=== PATIENT | male | born 1985 | race Caucasian/White ===

== ENCOUNTER 2016-07-10 03:02 | Inpatient (IN) ==
[2016-07-10 03:29] LABS: Basophils % 0.3 %; Eosinophils # 0.1 K/mcL (0.0-0.6); Eosinophils % 1.3 %; Hematocrit 54.5 % (37.5-50.1); Hemoglobin 19.2 g/dL (12.9-16.9); Immature Granulocytes % 0.4 % (0-4); Lymphocytes # 2.8 K/mcL (0.6-4.6); Lymphocytes % 27.3 %; Mean Corpuscular HGB Conc 35.2 g/dL (31.6-35.5); Mean Corpuscular Volume 82.5 fL (83.0-100.0); Mean Platelet Volume 10.2 fL (9.4-12.4); Monocytes # 1.1 K/mcL (0.0-1.3); Monocytes % 10.4 %; Neutrophils # 6.2 K/mcL (1.6-8.9); Platelet Count 235 K/mcL (140-400); Red Blood Count 6.61 M/mcL (4.19-5.50); Red Cell Distribution Width 12.8 % (11.5-14.5); Segmented Neutrophils % 60.3 %
[2016-07-10 03:40] LABS: BUN/Creatinine Ratio 9 (6-26); Blood Urea Nitrogen 11 mg/dL (8-26); Calcium 9.7 mg/dL (8.6-10.8); Carbon Dioxide 21 mEq/L (19-29); Chloride 104 mEq/L (98-109); Glucose 114 mg/dL (70-99); Osmolality,Calculated 286 (280-300); Potassium 3.7 mEq/L (3.5-4.5); Sodium 138 mEq/L (136-145); eGFR For African Americans > 60 (> 60); eGFR For Non-African Americans > 60 (> 60)
[2016-07-10 03:41] LABS: Acetaminophen < 1.0 mcg/mL (10-30); Ethanol < 10 mg/dL (0-10); Salicylate < 5.0 mg/dL (15-30)
--- NOTE | 2016-07-10 03:43 | Emergency Department Note ---
Disposition Clinical Impression: Suicidal ideation Depression Qualifiers: Depression Type: unspecified Qualified Code(s): F32.9 - Major depressive disorder, single episode, unspecified Disposition: Admitted As Inpatient Time of Disposition: 05:51 Psych HPI - General Chief Complaint: ED Psychiatric Symptoms Stated Complaint: PSYCH Time Seen by Provider: 07/10/16 03:23 Source: patient Nursing Notes Reviewed: Yes Vital Signs Reviewed: Yes - History of Present Illness Pt complaint: suicidal ideation, feels depressed If medical clearance, reason: psychiatric condition Onset (ago): day(s) Duration: getting worse History of similar episodes: Yes Improves with: none Worsens with: none Context: significant life stressor Alleged intoxication: No Associated symptoms: Denies: confusion, headache Traumatic symptoms: denies traumatic injury Self harm or harm to others: admits thoughts of self harm - Related Data Previous Rx's Medication Instructions Recorded Cefdinir [Omnicef] 300 mg PO BID #20 capsule 10/05/15 DiphenhydraMINE [Benadryl] 25 mg PO Q6HR PRN #40 capsule 12/10/15 Doxycycline 100 mg PO BID 10 Days 12/10/15 PredniSONE 40 mg PO DAILY 5 Days 12/10/15 Triamcinolone Acet 0.1% CRM 453.6 gm TP 1-2XD PRN #1 cream..g. 12/10/15 [Kenalog] Allergies Allergy/AdvReac Type Severity Reaction Status Date / Time No Known Allergies Allergy Verified 09/17/15 15:53 All systems ED: reviewed and negative except as stated. Constitutional: Denies: fever, chills Eyes: Denies: eye pain ENT ED: Denies: ear pain Cardiovascular: Denies: chest pain Respiratory: Denies: cough, dyspnea, wheezes Gastrointestinal: Denies: abdominal pain, nausea, vomiting Genitourinary: Denies: dysuria Musculoskeletal: Denies: back pain Neurological: Denies: headache Psychiatric: Denies: anxiety Endocrine: Denies: fatigue Hematological/Lymphatic: Denies: easy bleeding Allergic/Immunologic: Denies: facial swelling Past Medical History - Past Medical History Medical history: Reports: no medical history Psychiatric history: Reports: no psych history - Social History Smoking Status: Current every day smoker Smokeless Tobacco Status: No Alcohol use: Reports: none Drug use: Reports: none Physical Exam - General Limitations: no limitations General appearance: alert, in no apparent distress - Head Head exam: atraumatic, normocephalic - Eye Eye exam: Present: EOMI - ENT ENT exam: normal exam - Neck Neck exam: Present: normal inspection - Chest Chest inspection: Present: normal inspection, symmetric chest wall rise - Respiratory Respiratory exam: Present: wheezes. Absent: respiratory distress - Cardiovascular Cardiovascular exam: Present: regular rate, normal rhythm - Abdominal Exam Abdominal exam: Present: soft, Non-Tender - Extremities Exam Extremities exam: Present: full ROM. Absent: tenderness - Back Exam Back exam: Present: normal inspection, full ROM - Neurological Exam Neurological exam: Present: alert, oriented X3 - Psychiatric Psychiatric exam: Present: normal affect, normal mood, suicidal ideation. Absent: homicidal ideation - Skin Skin exam: Present: warm, dry, intact, normal color. Absent: rash, cyanosis, diaphoresis Course Course Narrative: 31-year-old male relates to exam room with complaints of suicidal ideation a few days. He mentions that he has been hospitalized for this in the past at [facility] but that was years ago. He mentions he had called the crisis line earlier today by then to come to the emergency department. Patient seen and examined. He appears anxious but in no acute distress. Workup initiated for medical clearance for psychiatric evaluation. - Reevaluation(s) Reevaluation #1: History this time his lab work is back appears unremarkable. However patient has not been able to urinate since he arrived. He states he cannot remember the last time he urinated. Denies any history of prostate issues, urinary retention, or any other urinary symptoms. Will order bladder/scan straight cath. Time: 04:27 Vital Signs Temperature 98.1 F 07/10/16 03:03 Pulse Rate 87 07/10/16 03:03 Respiratory Rate 18 07/10/16 03:03 Blood Pressure 183/100 07/10/16 03:03 O2 Sat by Pulse Oximetry 95 07/10/16 03:03 Temperature 98.1 F 07/10/16 03:03 Pulse Rate 87 07/10/16 03:03 Respiratory Rate 18 07/10/16 03:03 Blood Pressure 183/100 07/10/16 03:03 O2 Sat by Pulse Oximetry 95 07/10/16 03:03 Oxygen Delivery Oxygen Delivery Room Air Psych - MDM Narrative Medical decision making narrative: Patient was medically cleared for and evaluated by behavioral health staff, and was accepted for inpatient treatment. - Lab Data Result diagrams: 07/10/16 03:14 07/10/16 03:14 Lab Results 07/10/16 07/10/16 07/10/16 Range/Units 03:14 03:14 04:56 WBC 10.2 (4.3-11.1) K/mcL RBC 6.61 H (4.19-5.50) M/mcL Hgb 19.2 H (12.9-16.9) g/dL Hct 54.5 H (37.5-50.1) % MCV 82.5 L (83.0-100.0) fL MCH 29.0 (28.0-33.3) pg MCHC 35.2 (31.6-35.5) g/dL RDW 12.8 (11.5-14.5) % Plt Count 235 (140-400) K/mcL MPV 10.2 (9.4-12.4) fL Immature Gran % 0.4 (0-4) % Seg Neutrophils % 60.3 % Lymphocytes % 27.3 % Monocytes % 10.4 % Eosinophils % 1.3 % Basophils % 0.3 % Neutrophils # 6.2 (1.6-8.9) K/mcL Lymphocytes # 2.8 (0.6-4.6) K/mcL Monocytes # 1.1 (0.0-1.3) K/mcL Eosinophils # 0.1 (0.0-0.6) K/mcL Basophils # 0.0 (0.0-0.2) K/mcL Sodium 138 (136-145) mEq/L Potassium 3.7 (3.5-4.5) mEq/L Chloride 104 (98-109) mEq/L Carbon Dioxide 21 (19-29) mEq/L BUN 11 (8-26) mg/dL Creatinine 1.26 H (0.72-1.25) mg/dL Est GFR ( Amer) > 60 (> 60) Est GFR (Non-Af Amer) > 60 (> 60) BUN/Creatinine Ratio 9 (6-26) Glucose 114 H (70-99) mg/dL Calculated Osmolality 286 (280-300) Calcium 9.7 (8.6-10.8) mg/dL Urine Color Yellow (Yellow) Urine Clarity Clear (Clear) Urine pH 6.0 (5.0-8.0) pH Units Ur Specific [place] 1.015 (1.010-1.025) Urine Protein Negative (Neg-Trace) mg/dL Urine Glucose (UA) Normal (Normal) mg/dL Urine Ketones Trace H (Negative) mg/dL Urine Blood Negative (Negative) Urine Nitrite Negative (Negative) Urine Bilirubin Negative (Negative) Urine Urobilinogen Normal (Normal) mg/dL Ur Leukocyte Esterase Negative (Negative) Salicylates < 5.0 L (15-30) mg/dL Urine Opiates Screen (Pcvmjs=130) ng/mL Acetaminophen < 1.0 L (10-30) mcg/mL Ur Barbiturates Screen (Tbstph=522) ng/mL Ur Phencyclidine Scrn (Cutoff=25) ng/mL Ur Amphetamines Screen (Uhltwx=9990) ng/mL U Benzodiazepines Scrn (Wyynsg=334) ng/mL Urine Cocaine Screen (Cutoff= 300) ng/mL U Marijuana (THC) Screen (Cutoff = 50) ng/mL Ethyl Alcohol < 10 (0-10) mg/dL 07/10/16 Range/Units 04:56 WBC (4.3-11.1) K/mcL RBC (4.19-5.50) M/mcL Hgb (12.9-16.9) g/dL Hct (37.5-50.1) % MCV (83.0-100.0) fL MCH (28.0-33.3) pg MCHC (31.6-35.5) g/dL RDW (11.5-14.5) % Plt Count (140-400) K/mcL MPV (9.4-12.4) fL Immature Gran % (0-4) % Seg Neutrophils % % Lymphocytes % % Monocytes % % Eosinophils % % Basophils % % Neutrophils # (1.6-8.9) K/mcL Lymphocytes # (0.6-4.6) K/mcL Monocytes # (0.0-1.3) K/mcL Eosinophils # (0.0-0.6) K/mcL Basophils # (0.0-0.2) K/mcL Sodium (136-145) mEq/L Potassium (3.5-4.5) mEq/L Chloride (98-109) mEq/L Carbon Dioxide (19-29) mEq/L BUN (8-26) mg/dL Creatinine (0.72-1.25) mg/dL Est GFR ( Amer) (> 60) Est GFR (Non-Af Amer) (> 60) BUN/Creatinine Ratio (6-26) Glucose (70-99) mg/dL Calculated Osmolality (280-300) Calcium (8.6-10.8) mg/dL Urine Color (Yellow) Urine Clarity (Clear) Urine pH (5.0-8.0) pH Units Ur Specific [place] (1.010-1.025) Urine Protein (Neg-Trace) mg/dL Urine Glucose (UA) (Normal) mg/dL Urine Ketones (Negative) mg/dL Urine Blood (Negative) Urine Nitrite (Negative) Urine Bilirubin (Negative) Urine Urobilinogen (Normal) mg/dL Ur Leukocyte Esterase (Negative) Salicylates (15-30) mg/dL Urine Opiates Screen Negative (Rjvxhu=364) ng/mL Acetaminophen (10-30) mcg/mL Ur Barbiturates Screen Negative (Ugpdzd=087) ng/mL Ur Phencyclidine Scrn Negative (Cutoff=25) ng/mL Ur Amphetamines Screen Negative (Pbyqxe=2481) ng/mL U Benzodiazepines Scrn Negative (Nhppso=718) ng/mL Urine Cocaine Screen Positive H (Cutoff= 300) ng/mL U Marijuana (THC) Screen Positive H (Cutoff = 50) ng/mL Ethyl Alcohol (0-10) mg/dL Psychiatric Medical Clearance - Medical Clearance Checklist Medical History: No Social History Section defined Current Vitals: Last Vital Signs Temp 98.1 F 07/10/16 03:03 Pulse 87 07/10/16 03:03 Resp 18 07/10/16 03:03 BP 183/100 07/10/16 03:03 Pulse Ox 95 07/10/16 03:03 Psychiatric Lab Panel: Drug Levels and Toxicity 07/10/16 07/10/16 03:14 04:56 Urine Opiates Screen Negative Acetaminophen < 1.0 L Ur Barbiturates Screen Negative Ur Phencyclidine Scrn Negative Ur Amphetamines Screen Negative U Benzodiazepines Scrn Negative Urine Cocaine Screen Positive H U Marijuana (THC) Screen Positive H Ethyl Alcohol < 10 Abnormal Labs: Abnormal lab results RBC 6.61 M/mcL (4.19-5.50) H 07/10/16 03:14 Hgb 19.2 g/dL (12.9-16.9) H 07/10/16 03:14 Hct 54.5 % (37.5-50.1) H 07/10/16 03:14 MCV 82.5 fL (83.0-100.0) L 07/10/16 03:14 Creatinine 1.26 mg/dL (0.72-1.25) H 07/10/16 03:14 Glucose 114 mg/dL (70-99) H 07/10/16 03:14 Urine Ketones Trace mg/dL (Negative) H 07/10/16 04:56 Salicylates < 5.0 mg/dL (15-30) L 07/10/16 03:14 Acetaminophen < 1.0 mcg/mL (10-30) L 07/10/16 03:14 Urine Cocaine Screen Positive ng/mL (Cutoff= 300) H 07/10/16 04:56 U Marijuana (THC) Screen Positive ng/mL (Cutoff = 50) H 07/10/16 04:56 Statement of Medical Clearance: I have evaluated the patient, reviewed diagnostic information, and certify that the patient's medical condition is sufficiently stable that transfer to the psychiatric unit does not pose a significant risk of deterioration.
--- NOTE | 2016-07-10 04:54 | Emergency Department Note ---
START Narrative - START START: I examined this patient and my medical decision-making was reviewed with the MOTHER SUPERIOR/PA/Advanced Practice Nurse/Resident Physician. I agree with the documented findings, disposition and treatment plan as described except to the extent set forth below. ED attending note: Patient seen with physician timber management assistant Mikhail Waldrop Please see a copy of his note for details of the H&P, evaluation, management and disposition of this patient. We independently had [id number] contact with the patient Briefly: A 31-year-old male by EMS suicidal ideation With Discrete Plan. Patient Is Awake Alert and Appropriate Cooperative. Just Waiting Urinalysis. Otherwise Patient Is Medically Clear. Awaiting Mental Health Consultation. Disposition Pending.
[2016-07-10 05:02] LABS: Bilirubin,Urine Negative (Negative); Blood,Urine Negative (Negative); Clarity,Urine Clear (Clear); Color,Urine Yellow (Yellow); Glucose,Urine (UA) Normal (Normal); Ketones,Urine Trace mg/dL (Negative); Leukocyte Esterase,Urine Negative (Negative); Nitrite,Urine Negative (Negative); Protein,Urine Negative (Neg-Trace); Specific Gravity,Urine 1.015 (1.010-1.025); Urobilinogen,Urine Normal (Normal)
[2016-07-10 05:08] LABS: Amphetamine Screen,Urine Negative ng/mL (Cutoff=1000); Barbiturate Screen,Urine Negative ng/mL (Cutoff=200); Benzodiazepines Screen,Urine Negative ng/mL (Cutoff=200); Cannabinoid Screen,Urine Positive ng/mL (Cutoff = 50); Cocaine Screen,Urine Positive ng/mL (Cutoff= 300); Opiate Screen,Urine Negative ng/mL (Cutoff=300); Phencyclidine Screen,Urine Negative ng/mL (Cutoff=25)
[2016-07-10] MEDS ORDERED: MOM Conc 10 ML UD.LIQ PO PRN (06:01)
[2016-07-10] MEDS ORDERED: Acetaminophen 325 MG TABLET PO PRN (06:01)
[2016-07-10] MEDS ORDERED: *HR* LORazepam 1 MG TABLET PO PRN (06:01)
[2016-07-10] MEDS ORDERED: Mag Hydrox/Al Hydrox/Simeth 30 ML UDC PO PRN (06:01)
[2016-07-10] MEDS ORDERED: *HR* LORazepam 2 MG/ML VIAL IM PRN (06:01)
[2016-07-10] MEDS ORDERED: Haloperidol Lactate 5 MG/ML VIAL IM PRN (06:01)
[2016-07-10] MEDS ORDERED: traZODone 50 MG TABLET PO PRN (06:01)
[2016-07-10] MEDS: Nicotine 2 MG GUM BC PRN ×3 (09:56→21:19)
--- NOTE | 2016-07-10 10:08 | Psychiatry History & Physical ---
Date of Encounter: 07/10/16 Time of Encounter: 10:01 History of Present Illness Patient Stated Chief Complaint: suicidal Medicare Admission Attestation: For traditional Medicare patients the provided hospital inpatient services are reasonable and necessary and in the case of services not specified as inpatient -only under 42 CFR 419.22 (n), that they are appropriately provided as inpatient services in accordance 42 CFR 412.3. For Critical Access Hospital the patient may reasonably be expected to be discharged or transferred to a hospital within 96 hours after admission to the Critical Access Hospital. Admitted From: Emergency Dept History of Present Illness: Mr. Mo is a 31 year old male admitted from the emergency room for suicidal ideation and intoxication with cocaine and THC. Patient reports he had a suicide attempt when he was 20 years old by overdosing on blood pressure medication his father and he was hospitalized at that time. Did not have any outpatient follow-up after. He does admit to using cocaine and marijuana regularly never had any treatments or rehabilitation. He stressed out by unemployment and financial issues and family issues and substance abuse. Patient was vague and evasive answering questions regarding his suicidal ideation. Past Med Surg Social Fam HX - Past Medical History Medical history: no medical history - Past Psychiatric History Psychiatric history: Reports: no psych history - Social History Smoking Status: Current every day smoker Smokeless Tobacco Status: No Alcohol use: none Drug use: none Medications & Allergies Cefdinir [Omnicef] 300 mg PO BID #20 capsule 10/05/15 [Rx] DiphenhydraMINE [Benadryl] 25 mg PO Q6HR PRN #40 capsule 12/10/15 [Rx] Doxycycline 100 mg PO BID 10 Days 12/10/15 [Rx] PredniSONE 40 mg PO DAILY 5 Days 12/10/15 [Rx] Triamcinolone Acet 0.1% CRM [Kenalog] 453.6 gm TP 1-2XD PRN #1 cream..g. [Rx] Allergies No Known Allergies Allergy (Verified 09/17/15 15:53) Review of Systems Psychiatric: Reports: suicidal ideation Mental Status Exam Patient orientation: Yes Person, Yes Time, Yes Place Level of alertness: Alert Patient appearance: Appropriate, Well Groomed, Obese Behavior: calm, cooperative, guarded, other (chewing gum, superficial) Psychomotor activity: Normal Eye contact: Maintains Eye Contact Mood description: Anxious, Irritable Affect description: constricted, dysphoric Speech pattern: Normal rate, Normal rhythm, Normal tone Speech volume: Normal Thought process: Linear, Goal Oriented Thought content: Yes Suicidal ideation, No Overt delusions Perceptual disturbances: No Auditory hallucinations, No Visual hallucinations Attention span: Capable of Focused Attention Memory description: Grossly Intact Patient reliability: Questionable Historian Intelligence estimate: Average Judgment: Limited Insight: Partial Results - Vital Signs Vital signs: Temp Pulse Resp BP Pulse Ox 97 F L 75 16 154/91 95 07/10/16 08:53 07/10/16 08:53 07/10/16 08:53 07/10/16 08:53 07/10/16 03:03 - Labs Labs: Laboratory Last Values WBC 10.2 K/mcL (4.3-11.1) 07/10/16 03:14 RBC 6.61 M/mcL (4.19-5.50) H 07/10/16 03:14 Hgb 19.2 g/dL (12.9-16.9) H 07/10/16 03:14 Hct 54.5 % (37.5-50.1) H 07/10/16 03:14 MCV 82.5 fL (83.0-100.0) L 07/10/16 03:14 MCH 29.0 pg (28.0-33.3) 07/10/16 03:14 MCHC 35.2 g/dL (31.6-35.5) 07/10/16 03:14 RDW 12.8 % (11.5-14.5) 07/10/16 03:14 Plt Count 235 K/mcL (140-400) 07/10/16 03:14 MPV 10.2 fL (9.4-12.4) 07/10/16 03:14 Immature Gran % 0.4 % (0-4) 07/10/16 03:14 Seg Neutrophils % 60.3 % 07/10/16 03:14 Lymphocytes % 27.3 % 07/10/16 03:14 Monocytes % 10.4 % 07/10/16 03:14 Eosinophils % 1.3 % 07/10/16 03:14 Basophils % 0.3 % 07/10/16 03:14 Neutrophils # 6.2 K/mcL (1.6-8.9) 07/10/16 03:14 Lymphocytes # 2.8 K/mcL (0.6-4.6) 07/10/16 03:14 Monocytes # 1.1 K/mcL (0.0-1.3) 07/10/16 03:14 Eosinophils # 0.1 K/mcL (0.0-0.6) 07/10/16 03:14 Basophils # 0.0 K/mcL (0.0-0.2) 07/10/16 03:14 Sodium 138 mEq/L (136-145) 07/10/16 03:14 Potassium 3.7 mEq/L (3.5-4.5) 07/10/16 03:14 Chloride 104 mEq/L (98-109) 07/10/16 03:14 Carbon Dioxide 21 mEq/L (19-29) 07/10/16 03:14 BUN 11 mg/dL (8-26) 07/10/16 03:14 Creatinine 1.26 mg/dL (0.72-1.25) H 07/10/16 03:14 Est GFR ( Amer) > 60 (> 60) 07/10/16 03:14 Est GFR (Non-Af Amer) > 60 (> 60) 07/10/16 03:14 BUN/Creatinine Ratio 9 (6-26) 07/10/16 03:14 Glucose 114 mg/dL (70-99) H 07/10/16 03:14 Calculated Osmolality 286 (280-300) 07/10/16 03:14 Calcium 9.7 mg/dL (8.6-10.8) 07/10/16 03:14 Urine Color Yellow (Yellow) 07/10/16 04:56 Urine Clarity Clear (Clear) 07/10/16 04:56 Urine pH 6.0 pH Units (5.0-8.0) 07/10/16 04:56 Ur Specific [place] 1.015 (1.010-1.025) 07/10/16 04:56 Urine Protein Negative mg/dL (Neg-Trace) 07/10/16 04:56 Urine Glucose (UA) Normal mg/dL (Normal) 07/10/16 04:56 Urine Ketones Trace mg/dL (Negative) H 07/10/16 04:56 Urine Blood Negative (Negative) 07/10/16 04:56 Urine Nitrite Negative (Negative) 07/10/16 04:56 Urine Bilirubin Negative (Negative) 07/10/16 04:56 Urine Urobilinogen Normal mg/dL (Normal) 07/10/16 04:56 Ur Leukocyte Esterase Negative (Negative) 07/10/16 04:56 Salicylates < 5.0 mg/dL (15-30) L 07/10/16 03:14 Urine Opiates Screen Negative ng/mL (Qkmsow=500) 07/10/16 04:56 Acetaminophen < 1.0 mcg/mL (10-30) L 07/10/16 03:14 Ur Barbiturates Screen Negative ng/mL (Xuudmv=021) 07/10/16 04:56 Ur Phencyclidine Scrn Negative ng/mL (Cutoff=25) 07/10/16 04:56 Ur Amphetamines Screen Negative ng/mL ([place]=4650) 07/10/16 04:56 U Benzodiazepines Scrn Negative ng/mL (Xznamv=375) 07/10/16 04:56 Urine Cocaine Screen Positive ng/mL (Cutoff= 300) H 07/10/16 04:56 U Marijuana (THC) Screen Positive ng/mL (Cutoff = 50) H 07/10/16 04:56 Ethyl Alcohol < 10 mg/dL (0-10) 07/10/16 03:14 Assessment and Plan (1) Suicidal ideation Current visit: Yes Status: Acute Plan: Admit inpatient for safety and stabilization, Close observation, Suicide Precautions per unit protocol, Encourage participation in unit milieu, Group Therapy, Monitor sleep, Monitor appetite Additional Plan: We will start patient on fluoxetine 20 mg daily. Benefits and side effects were discussed patient is agreeable to start. Risks, benefits, side effects, alternatives discussed w/pt: Yes Patient agreeable to treatment: Yes Estimated Length of Stay (Days): 5 (2) Cocaine abuse Current visit: Yes Status: Acute Plan: Admit inpatient for safety and stabilization, Close observation, Suicide Precautions per unit protocol, Encourage participation in unit milieu, Group Therapy, Monitor sleep, Monitor appetite Risks, benefits, side effects, alternatives discussed w/pt: Yes Patient agreeable to treatment: Yes (3) Moderate tetrahydrocannabinol (THC) dependence Current visit: Yes Status: Acute Plan: Admit inpatient for safety and stabilization, Close observation, Suicide Precautions per unit protocol, Encourage participation in unit milieu, Group Therapy, Monitor sleep, Monitor appetite
[2016-07-11 08:52] VITALS: BP 143/87
[2016-07-11] MEDS: Nicotine 2 MG GUM BC PRN (12:24)
[2016-07-11] MEDS ORDERED: FLUoxetine 20 MG CAPSULE PO SCH (13:30)
--- NOTE | 2016-07-11 14:10 | Discharge Summary ---
Date of Encounter: 07/11/16 Time of Encounter: 14:08 Diagnosis - Discharge Diagnosis (1) Suicidal ideation Status: Acute (2) Cocaine abuse Status: Acute (3) Moderate tetrahydrocannabinol (THC) dependence Status: Acute Medications - Discharge Medications No Known Home Drugs 07/10/16 [History] Allergies No Known Allergies Allergy (Verified 09/17/15 15:53) Provider Date of admission: 07/10/16 05:49 Primary care physician: PCP NO Discharging clinician: Zack Addison Assessment and Plan - Patient/Caregiver Discharge Instructions Activity: resume usual activities as tolerated Diet: regular diet - Follow up Plan Follow up with: NO,PCP [Primary Care Provider] - Functional capacity at discharge: independent ambulation Overall status at discharge: Stable Disposition: Home, Self-Care Hospital Course Hospital course: Mr. Mo is a 31 year old male admitted for suicidal ideation and intoxication was cocaine and marijuana. Patient has been using drugs for several years and unemployed unable to support his family and kicked him out of the house. Patient has a history of past TREATMENTS in the hospital but no follow-up and has been using drugs since age 15. Her 4 details of admission please see H&P On the unit the patient was anxious and irritable and demanding discharge refused to take medication but was interested in getting into drug rehabilitation program. Prior to discharge he was medically stable on no medication and denies any suicidal ideation and discussed his discharge plans with social worker palliative care. - Time Spent with Patient Total time spent providing and/or coordinating discharge services: Less than 30 minutes Quality - Multiple Antipsychotics Patient discharged on 2 or more antipsychotic medications: No Procedures - Procedures Procedures: Medication Management, Crisis Stabilization, Supportive Therapy, Group Therapy, Psychoeducational Therapy Mental Status Exam - Mental Status Exam Patient orientation: Yes Person, Yes Time, Yes Place Level of alertness: Alert Patient appearance: Appropriate, Well Groomed, Obese Behavior: calm, cooperative, guarded Psychomotor activity: Normal Eye contact: Maintains Eye Contact Mood description: Anxious Affect description: constricted Speech pattern: Normal rate, Normal rhythm, Normal tone Speech Volume: Normal Thought process: Linear, Goal Oriented Thought Content: No Overt delusions Perceptual Disturbances: No Auditory hallucinations, No Visual hallucinations Judgment: Limited Insight: Partial
== END 2016-07-11 15:00 | disposition home or self-care (01) | DRG 754 ==
LOC: EMEROO 03:02 → 1ANU 05:49 → SUATTDRO 05:49 → 1ANU 05:53
PROVIDERS: ADMIT Student in an Organized Health Care Education/Training Program; ATTEND Psychiatry & Neurology Psychiatry

== ENCOUNTER 2017-02-14 12:56 | Observation (INO) ==
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
[2017-02-14 13:36] LABS: Basophils % 0.3 %; Eosinophils # 0.1 K/mcL (0.0-0.6); Eosinophils % 1.3 %; Hematocrit 50.8 % (37.5-50.1); Hemoglobin 17.4 g/dL (12.9-16.9); Immature Granulocytes % 0.7 % (0-4); Lymphocytes # 2.3 K/mcL (0.6-4.6); Lymphocytes % 24.4 %; Mean Corpuscular HGB Conc 34.3 g/dL (31.6-35.5); Mean Corpuscular Hemoglobin 29.3 pg (28.0-33.3); Mean Corpuscular Volume 85.7 fL (83.0-100.0); Mean Platelet Volume 9.7 fL (9.4-12.4); Monocytes # 0.7 K/mcL (0.0-1.3); Monocytes % 7.2 %; Neutrophils # 6.3 K/mcL (1.6-8.9); Platelet Count 203 K/mcL (140-400); Red Blood Count 5.93 M/mcL (4.19-5.50); Red Cell Distribution Width 13.9 % (11.5-14.5); Segmented Neutrophils % 66.1 %
[2017-02-14 13:44] LABS: Amphetamine Screen,Urine Negative ng/mL (Cutoff=1000); Barbiturate Screen,Urine Negative ng/mL (Cutoff=200); Benzodiazepines Screen,Urine Negative ng/mL (Cutoff=200); Cannabinoid Screen,Urine Positive ng/mL (Cutoff = 50); Cocaine Screen,Urine Positive ng/mL (Cutoff= 300); Opiate Screen,Urine Negative ng/mL (Cutoff=300); Phencyclidine Screen,Urine Negative ng/mL (Cutoff=25)
[2017-02-14 13:58] LABS: Acetaminophen < 1.0 mcg/mL (10-30); Alanine Aminotransferase 21 Units/L (0-55); Albumin 3.7 g/dL (3.5-5.0); Albumin/Globulin Ratio 1.2 (1.1-2.2); Alkaline Phosphatase 54 Units/L (38-126); Aspartate Amino Transferase 21 Units/L (5-34); BUN/Creatinine Ratio 9 (6-26); Bilirubin,Direct 0.4 mg/dL (0.0-0.5); Bilirubin,Indirect 0.4 mg/dL (0.0-1.2); Bilirubin,Total 0.8 mg/dL (0.2-1.2); Blood Urea Nitrogen 8 mg/dL (8-26); Carbon Dioxide 28 mEq/L (19-29); Chloride 106 mEq/L (98-109); Ethanol < 10 mg/dL (0-10); Glucose 110 mg/dL (70-99); Osmolality,Calculated 291 (280-300); Potassium 3.9 mEq/L (3.5-4.5); Salicylate < 5.0 mg/dL (15-30); Sodium 141 mEq/L (136-145); Total Protein 6.7 g/dL (6.0-8.3); eGFR For African Americans > 60 (> 60); eGFR For Non-African Americans > 60 (> 60)
[2017-02-14] MEDS ORDERED: *HR* LORazepam 2 MG/ML VIAL IM PRN (16:30)
[2017-02-14] MEDS ORDERED: Haloperidol Lactate 5 MG/ML VIAL IM PRN (16:30)
[2017-02-14] MEDS ORDERED: Acetaminophen 325 MG TABLET PO PRN (16:30)
[2017-02-14] MEDS ORDERED: traZODone 50 MG TABLET PO PRN (16:30)
[2017-02-14] MEDS ORDERED: Mag Hydrox/Al Hydrox/Simeth 30 ML UDC PO PRN (16:30)
[2017-02-14] MEDS ORDERED: *HR* LORazepam 1 MG TABLET PO PRN (16:30)
[2017-02-14] MEDS ORDERED: MOM Conc 10 ML UD.LIQ PO PRN (16:30)
[2017-02-14] MEDS ORDERED: hydrOXYzine pamoate 25 MG CAPSULE PO PRN (16:30)
--- NOTE | 2017-02-15 10:02 | Discharge Summary ---
Date of Encounter: 02/15/17 Time of Encounter: 09:30 History of Present Illness Chief complaint: i want to save my job, i am not suicidal. Admitted From: Emergency Dept History of Present Illness: Mr. Mo is a 31 year old male evaluated today , he came to ED with his father stating depress and suicidal , when he was evaluated in ED by psych , he denied any SI but admitted to 1A FOR observation as was inpatient in 06/30 for 24 hrs. Patient has h/o depression since teenager and substance use since 15 yr old. He states was seperated in 06/30 and was homeless so came here and said he was suicidal , but discharge next morning, he never follow up or took medications and continued using cocain and marijuana . This time his mother told him to come here for depression and to say he is suicidal so he can get help and as he has no insurance and out patient will not give appointment . he said i tried to hang self when i was 20 and no plan to hurt self since then . states he worries a lot and has anxiety and marijuana calms him, he feels down about finances and his pending divorce. at present denies any suicidal ideation , no homicidal thoughts, denies psychosis , no manic episode. He has not been to any rehab in past and not much interested, he states he uses cocaine 1-2 times a month and marijuana couple of joints a day , he is refusing anti depressant as he tried when he was 20 3 kinds and did not like them and therefore will not take medication . states he will set up counselling through [facility] placement [facility] counselor in [place]. Prior to discharge patient not suicidal, not on any medication and discussed his discharge plan with nursing home social worker, will go home to his parents where he is living now. 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 first admission was at age 20 he tried to hang self but did not and was admitted , took medication for one month but did not after till seperated and homeless, came to ED and admitted to 1A for 24 hrs. third admission is current one , came as mother told him to and wants to be discharged as not suicidal , and has not only said to please his mom as no insurance and will get referal. Family psychiatric history: No Family History of Suicide: Unknown - Past Surgical History Surgical History: no surgical history - Social History Smoking Status: Current every day smoker Smokeless Tobacco Status: No Alcohol use: none Drug use: none Medications - Discharge Medications No Known Home Drugs 02/14/17 [History] 3 Allergy/AdvReac Type Severity Reaction Status Date / Time No Known Allergies Allergy Verified 02/14/17 13:01 Review of Systems Psychiatric: Reports: depression, anxiety Mental Status Exam - Mental Status Exam Patient orientation: Yes Person, Yes Time, Yes Place Level of alertness: Alert Patient appearance: Appropriate Behavior: calm, cooperative Psychomotor activity: Normal Eye contact: Maintains Eye Contact Mood description: Euthymic/stable, Anxious Affect description: congruent with mood Speech pattern: Normal rate, Normal rhythm, Normal tone, Coherent Speech Volume: Normal Thought process: Intact Thought Content: Yes Intact Judgment: Good Insight: Minimal Results - Vital Signs Vital signs: Temp Pulse Resp BP Pulse Ox 98 F 58 18 121/75 96 02/14/17 21:00 02/14/17 21:00 02/14/17 21:00 02/14/17 21:00 02/14/17 12:57 - Labs Labs: Laboratory Last Values WBC 9.6 K/mcL (4.3-11.1) 02/14/17 13:24 RBC 5.93 M/mcL (4.19-5.50) H 02/14/17 13:24 Hgb 17.4 g/dL (12.9-16.9) H 02/14/17 13:24 Hct 50.8 % (37.5-50.1) H 02/14/17 13:24 MCV 85.7 fL (83.0-100.0) 02/14/17 13:24 MCH 29.3 pg (28.0-33.3) 02/14/17 13:24 MCHC 34.3 g/dL (31.6-35.5) 02/14/17 13:24 RDW 13.9 % (11.5-14.5) 02/14/17 13:24 Plt Count 203 K/mcL (140-400) 02/14/17 13:24 MPV 9.7 fL (9.4-12.4) 02/14/17 13:24 Immature Gran % 0.7 % (0-4) 02/14/17 13:24 Seg Neutrophils % 66.1 % 02/14/17 13:24 Lymphocytes % 24.4 % 02/14/17 13:24 Monocytes % 7.2 % 02/14/17 13:24 Eosinophils % 1.3 % 02/14/17 13:24 Basophils % 0.3 % 02/14/17 13:24 Neutrophils # 6.3 K/mcL (1.6-8.9) 02/14/17 13:24 Lymphocytes # 2.3 K/mcL (0.6-4.6) 02/14/17 13:24 Monocytes # 0.7 K/mcL (0.0-1.3) 02/14/17 13:24 Eosinophils # 0.1 K/mcL (0.0-0.6) 02/14/17 13:24 Basophils # 0.0 K/mcL (0.0-0.2) 02/14/17 13:24 Sodium 141 mEq/L (136-145) 02/14/17 13:24 Potassium 3.9 mEq/L (3.5-4.5) 02/14/17 13:24 Chloride 106 mEq/L (98-109) 02/14/17 13:24 Carbon Dioxide 28 mEq/L (19-29) 02/14/17 13:24 BUN 8 mg/dL (8-26) 02/14/17 13:24 Creatinine 0.92 mg/dL (0.72-1.25) 02/14/17 13:24 Est GFR ( Amer) > 60 (> 60) 02/14/17 13:24 Est GFR (Non-Af Amer) > 60 (> 60) 02/14/17 13:24 BUN/Creatinine Ratio 9 (6-26) 02/14/17 13:24 Glucose 110 mg/dL (70-99) H 02/14/17 13:24 Calculated Osmolality 291 (280-300) 02/14/17 13:24 Calcium 9.0 mg/dL (8.6-10.8) 02/14/17 13:24 Total Bilirubin 0.8 mg/dL (0.2-1.2) 02/14/17 13:24 Direct Bilirubin 0.4 mg/dL (0.0-0.5) 02/14/17 13:24 Indirect Bilirubin 0.4 mg/dL (0.0-1.2) 02/14/17 13:24 AST 21 Units/L (5-34) 02/14/17 13:24 ALT 21 Units/L (0-55) 02/14/17 13:24 Alkaline Phosphatase 54 Units/L (38-126) 02/14/17 13:24 Serum Total Protein 6.7 g/dL (6.0-8.3) 02/14/17 13:24 Albumin 3.7 g/dL (3.5-5.0) 02/14/17 13:24 Globulin 3.0 g/dL (2.4-3.5) 02/14/17 13:24 Albumin/Globulin Ratio 1.2 (1.1-2.2) 02/14/17 13:24 Salicylates < 5.0 mg/dL (15-30) L 02/14/17 13:24 Urine Opiates Screen Negative ng/mL (Qcxkgu=408) 02/14/17 13:30 Acetaminophen < 1.0 mcg/mL (10-30) L 02/14/17 13:24 Ur Barbiturates Screen Negative ng/mL (Ugffmf=280) 02/14/17 13:30 Ur Phencyclidine Scrn Negative ng/mL (Cutoff=25) 02/14/17 13:30 Ur Amphetamines Screen Negative ng/mL (Nmfdxh=0872) 02/14/17 13:30 U Benzodiazepines Scrn Negative ng/mL (Ekbgvi=197) 02/14/17 13:30 Urine Cocaine Screen Positive ng/mL (Cutoff= 300) H 02/14/17 13:30 U Marijuana (THC) Screen Positive ng/mL (Cutoff = 50) H 02/14/17 13:30 Ethyl Alcohol < 10 mg/dL (0-10) 02/14/17 13:24 Diagnosis - Discharge Diagnosis (1) Depression Status: Acute Qualifiers: Depression Type: reactive depression Qualified Code(s): F32.9 - Major depressive disorder, single episode, unspecified (2) Cocaine abuse Status: Chronic (3) Moderate tetrahydrocannabinol (THC) dependence Status: Chronic Assessment and Plan - Follow up Plan Follow up with: NONE,PCP [Primary Care Provider] - Functional capacity at discharge: independent ambulation Overall status at discharge: Stable Disposition: Home, Self-Care Provider Date of admission: 02/14/17 16:15 Primary care physician: PCP NONE Hospital Course Hospital course: Mr. Mo is a 31 year old male seen today , discharged today as not suicidal, stable , referral for rehab counselling , educated about his substance use. prior to discharge he was medically stable , tox positive for cocaine and marijuana he will be discharged to home, without medications as he refused , he is working now and wants to save his job. Time spent discussing smoking cessation with patient: more than 10 minutes Does patient wish to continue nicotine replacement upon disc: No - Time Spent with Patient Total time spent providing and/or coordinating discharge services: Greater than 30 minutes (patient at present not in imenent danger to self/others ) Procedures - Procedures Procedures: Crisis Stabilization, Supportive Therapy, Group Therapy, Psychoeducational Therapy Quality - Multiple Antipsychotics Patient discharged on 2 or more antipsychotic medications: No
[2017-02-15 10:19] VITALS: BP 124/76
== END 2017-02-15 11:20 | disposition home or self-care (01) ==
LOC: 1ANU 12:56 → EMEROO 12:56 → 1ANU 16:12
PROVIDERS: ADMIT Psychiatry & Neurology Psychiatry; ATTEND Psychiatry & Neurology Psychiatry

== ENCOUNTER 2017-02-17 20:07 | Inpatient (IN) ==
--- NOTE | 2017-02-17 20:22 | Emergency Department Note ---
Disposition Clinical Impression: Suicidal ideation, Auditory hallucinations Disposition: Still a Patient Condition: Fair Referrals: NONE,PCP [Primary Care Provider] - Forms: ED Satisfaction Letter Time of Disposition: 22:17 General Adult HPI - General Chief complaint: ED Psychiatric Symptoms Stated complaint: si Time Seen by Provider: 02/17/17 20:21 Source: patient Limitations: no limitations Nursing Notes Reviewed: Yes Vital Signs Reviewed: Yes - History of Present Illness Pain Scale: 0 - Related Data Home Medications Medication Instructions Recorded Confirmed No Known Home Drugs 02/14/17 02/14/17 Allergies Allergy/AdvReac Type Severity Reaction Status Date / Time No Known Allergies Allergy Verified 02/17/17 20:14 All systems ED: reviewed and negative except as stated. Constitutional: Denies: fever, chills Eyes: Denies: vision change ENT ED: Denies: congestion Cardiovascular: Denies: chest pain, palpitations, syncope Respiratory: Denies: cough, dyspnea, wheezes Gastrointestinal: Denies: abdominal pain, nausea, vomiting, diarrhea, hematemesis, melena, hematochezia Genitourinary: Denies: urgency, dysuria, frequency, hematuria Musculoskeletal: Denies: back pain, neck pain Integumentary: Denies: rash Neurological: Denies: headache, weakness, numbness Psychiatric: Reports: suicidal thoughts (With the plan of hanging himself), auditory hallucinations. Denies: homicidal thoughts, visual hallucinations Past Medical History - Past Medical History Attestation: Yes The following information was validated with the patient. Source: patient Medical history: Reports: no medical history Surgical history: Reports: no surgical history Psychiatric history: Reports: anxiety, depression, previous psychiatric hospitalization - Social History Smoking Status: Current every day smoker Smokeless Tobacco Status: No Alcohol use: Reports: none Drug use: Reports: cocaine, marijuana Physical Exam - General Limitations: no limitations General appearance: alert, in no apparent distress - Head Head exam: atraumatic, normocephalic, normal inspection - Eye Eye exam: Present: normal appearance, PERRL, EOMI - ENT ENT exam: normal exam, normal oropharynx, mucous membranes moist - Neck Neck exam: Present: normal inspection, full ROM, trachea midline - Chest Chest inspection: Present: normal inspection, symmetric chest wall rise. Absent : tenderness - Respiratory Respiratory exam: Present: normal lung sounds bilaterally. Absent: respiratory distress, accessory muscle use - Cardiovascular Cardiovascular exam: Present: regular rate, normal rhythm, normal heart sounds - Abdominal Exam Abdominal exam: Present: soft, Non-Tender. Absent: tenderness, distention, guarding, rebound, rigidity, organomegaly, Esparza's sign, Rovsing's sign, tenderness at McBurney's Point - Extremities Exam Extremities exam: Present: normal inspection, full ROM, normal capillary refill. Absent: tenderness, pedal edema - Back Exam Back exam: Present: normal inspection, full ROM. Absent: tenderness - Neurological Exam Neurological exam: Present: alert, oriented X3 - Psychiatric Psychiatric exam: Present: normal affect, normal mood, suicidal ideation (With the plan to hang himself) - Skin Skin exam: Present: warm, dry, intact, normal color Course Course Narrative: The patient presented to the emergency department complaining of suicidal ideation. He states that he has a plan to hang himself. He does have audio hallucinations but no visual. He has no medical complaints at this time. He states he has been seen several times by psych for these issues. He is currently on no medication. He states he is not supposed to be taking medication. He has had several suicide attempts before with one being serious where he states he had to be flown to [facility] for blood pressure medication overdose. He denies any ingestions today. Patient states he did use cocaine earlier today. He states he uses is generally daily. We will get a basic lab workup on patient and contact 1A for evaluation. Patient is pink slipped at this time. Vital Signs Temperature 98.4 F 02/17/17 20:14 Pulse Rate 98 02/17/17 20:14 Respiratory Rate 14 02/17/17 20:14 Blood Pressure 172/114 02/17/17 20:14 O2 Sat by Pulse Oximetry 96 02/17/17 20:14 Temperature 98.4 F 02/17/17 20:14 Pulse Rate 88 02/17/17 20:33 Respiratory Rate 16 02/17/17 20:33 Blood Pressure 172/114 02/17/17 20:14 O2 Sat by Pulse Oximetry 96 02/17/17 20:14 Oxygen Delivery Oxygen Delivery Room Air Medical Decision Making - Medical Records Medical records reviewed: Yes I reviewed the patient's medical records. - Lab Data Lab results reviewed: Yes I reviewed the patient's lab results. Result diagrams: 02/17/17 20:29 02/17/17 20:29 Lab Results 02/17/17 02/17/17 02/17/17 Range/Units 20:29 20:29 20:30 WBC 11.7 H (4.3-11.1) K/mcL RBC 6.49 H (4.19-5.50) M/mcL Hgb 19.0 H D (12.9-16.9) g/dL Hct 56.0 H (37.5-50.1) % MCV 86.3 (83.0-100.0) fL MCH 29.3 (28.0-33.3) pg MCHC 33.9 (31.6-35.5) g/dL RDW 13.5 (11.5-14.5) % Plt Count 222 (140-400) K/mcL MPV 9.8 (9.4-12.4) fL Immature Gran % 0.4 (0-4) % Seg Neutrophils % 75.9 % Lymphocytes % 16.0 % Monocytes % 7.1 % Eosinophils % 0.3 % Basophils % 0.3 % Neutrophils # 8.9 (1.6-8.9) K/mcL Lymphocytes # 1.9 (0.6-4.6) K/mcL Monocytes # 0.8 (0.0-1.3) K/mcL Eosinophils # 0.0 (0.0-0.6) K/mcL Basophils # 0.0 (0.0-0.2) K/mcL Sodium 140 (136-145) mEq/L Potassium 3.9 (3.5-4.5) mEq/L Chloride 106 (98-109) mEq/L Carbon Dioxide 24 (19-29) mEq/L BUN 13 (8-26) mg/dL Creatinine 1.26 H (0.72-1.25) mg/dL Est GFR ( Amer) > 60 (> 60) Est GFR (Non-Af Amer) > 60 (> 60) BUN/Creatinine Ratio 10 (6-26) Glucose 142 H (70-99) mg/dL Calculated Osmolality 293 (280-300) Calcium 9.7 (8.6-10.8) mg/dL Urine Color Dark Yellow (Yellow) Urine Clarity Clear (Clear) Urine pH 7.0 (5.0-8.0) pH Units Ur Specific [place] 1.029 H (1.010-1.025) Urine Protein 30 H (Neg-Trace) mg/dL Urine Glucose (UA) Normal (Normal) mg/dL Urine Ketones Trace H (Negative) mg/dL Urine Blood Negative (Negative) Urine Nitrite Negative (Negative) Urine Bilirubin Small H (Negative) Urine Urobilinogen Normal (Normal) mg/dL Ur Leukocyte Esterase Negative (Negative) Urine Microscopic RBC 0-3 (0-3) per hpf Urine Microscopic WBC 0-3 (0-3) per hpf Ur Squamous Epith Cells Moderate H (None-Few) per lpf Urine Bacteria None Seen (None-Few) per hpf Hyaline Casts None Seen (None-Few) per lpf Salicylates < 5.0 L (15-30) mg/dL Urine Opiates Screen (Fcnpbo=792) ng/mL Acetaminophen < 1.0 L (10-30) mcg/mL Ur Barbiturates Screen (Hdyoqm=342) ng/mL Ur Phencyclidine Scrn (Cutoff=25) ng/mL Ur Amphetamines Screen (Aqehku=6599) ng/mL U Benzodiazepines Scrn (Akhrnq=223) ng/mL Urine Cocaine Screen (Cutoff= 300) ng/mL U Marijuana (THC) Screen (Cutoff = 50) ng/mL Ethyl Alcohol < 10 (0-10) mg/dL 02/17/17 Range/Units 20:30 WBC (4.3-11.1) K/mcL RBC (4.19-5.50) M/mcL Hgb (12.9-16.9) g/dL Hct (37.5-50.1) % MCV (83.0-100.0) fL MCH (28.0-33.3) pg MCHC (31.6-35.5) g/dL RDW (11.5-14.5) % Plt Count (140-400) K/mcL MPV (9.4-12.4) fL Immature Gran % (0-4) % Seg Neutrophils % % Lymphocytes % % Monocytes % % Eosinophils % % Basophils % % Neutrophils # (1.6-8.9) K/mcL Lymphocytes # (0.6-4.6) K/mcL Monocytes # (0.0-1.3) K/mcL Eosinophils # (0.0-0.6) K/mcL Basophils # (0.0-0.2) K/mcL Sodium (136-145) mEq/L Potassium (3.5-4.5) mEq/L Chloride (98-109) mEq/L Carbon Dioxide (19-29) mEq/L BUN (8-26) mg/dL Creatinine (0.72-1.25) mg/dL Est GFR ( Amer) (> 60) Est GFR (Non-Af Amer) (> 60) BUN/Creatinine Ratio (6-26) Glucose (70-99) mg/dL Calculated Osmolality (280-300) Calcium (8.6-10.8) mg/dL Urine Color (Yellow) Urine Clarity (Clear) Urine pH (5.0-8.0) pH Units Ur Specific [place] (1.010-1.025) Urine Protein (Neg-Trace) mg/dL Urine Glucose (UA) (Normal) mg/dL Urine Ketones (Negative) mg/dL Urine Blood (Negative) Urine Nitrite (Negative) Urine Bilirubin (Negative) Urine Urobilinogen (Normal) mg/dL Ur Leukocyte Esterase (Negative) Urine Microscopic RBC (0-3) per hpf Urine Microscopic WBC (0-3) per hpf Ur Squamous Epith Cells (None-Few) per lpf Urine Bacteria (None-Few) per hpf Hyaline Casts (None-Few) per lpf Salicylates (15-30) mg/dL Urine Opiates Screen Negative (Mmwxrx=414) ng/mL Acetaminophen (10-30) mcg/mL Ur Barbiturates Screen Negative (Okxhaa=677) ng/mL Ur Phencyclidine Scrn Negative (Cutoff=25) ng/mL Ur Amphetamines Screen Negative (Qxpyjb=9186) ng/mL U Benzodiazepines Scrn Negative (Lxjnfm=913) ng/mL Urine Cocaine Screen Positive H (Cutoff= 300) ng/mL U Marijuana (THC) Screen Positive H (Cutoff = 50) ng/mL Ethyl Alcohol (0-10) mg/dL S.B.A.R. - S.B.A.R. Background: Presenting Complaint (Suicidal ideation of hanging himself. Having auditory hallucinations.), Relevant PMH, Meds, & Allergies (Previous suicide attempts.) Recommendation: Recommendation based on pending studies, treatments, or consults (1 a evaluation pending. Patient is pink slipped.) S.B.A.R. Report Given to: Dr. Vega, Dr. John Hathaway Repor Time: 22:18
[2017-02-17 20:35] LABS: Bilirubin,Urine Small (Negative); Blood,Urine Negative (Negative); Clarity,Urine Clear (Clear); Color,Urine Dark Yellow (Yellow); Glucose,Urine (UA) Normal (Normal); Ketones,Urine Trace mg/dL (Negative); Leukocyte Esterase,Urine Negative (Negative); Nitrite,Urine Negative (Negative); Protein,Urine 30 mg/dL (Neg-Trace); Specific Gravity,Urine 1.029 (1.010-1.025); Urobilinogen,Urine Normal (Normal)
[2017-02-17 20:36] LABS: Basophils % 0.3 %; Eosinophils % 0.3 %; Immature Granulocytes % 0.4 % (0-4); Lymphocytes # 1.9 K/mcL (0.6-4.6); Mean Corpuscular HGB Conc 33.9 g/dL (31.6-35.5); Mean Corpuscular Hemoglobin 29.3 pg (28.0-33.3); Mean Corpuscular Volume 86.3 fL (83.0-100.0); Mean Platelet Volume 9.8 fL (9.4-12.4); Monocytes # 0.8 K/mcL (0.0-1.3); Monocytes % 7.1 %; Neutrophils # 8.9 K/mcL (1.6-8.9); Platelet Count 222 K/mcL (140-400); Red Blood Count 6.49 M/mcL (4.19-5.50); Red Cell Distribution Width 13.5 % (11.5-14.5); Segmented Neutrophils % 75.9 %
[2017-02-17 20:37] LABS: Bacteria,Urine None Seen per hpf (None-Few); Hyaline Casts,Urine None Seen per lpf (None-Few); RBC,Urine 0-3 per hpf (0-3); Squamous Epithelial Cell,Urine Moderate per lpf (None-Few); WBC,Urine 0-3 per hpf (0-3)
[2017-02-17 20:42] LABS: Amphetamine Screen,Urine Negative ng/mL (Cutoff=1000); Barbiturate Screen,Urine Negative ng/mL (Cutoff=200); Benzodiazepines Screen,Urine Negative ng/mL (Cutoff=200); Cannabinoid Screen,Urine Positive ng/mL (Cutoff = 50); Cocaine Screen,Urine Positive ng/mL (Cutoff= 300); Opiate Screen,Urine Negative ng/mL (Cutoff=300); Phencyclidine Screen,Urine Negative ng/mL (Cutoff=25)
[2017-02-17 20:53] LABS: BUN/Creatinine Ratio 10 (6-26); Blood Urea Nitrogen 13 mg/dL (8-26); Calcium 9.7 mg/dL (8.6-10.8); Carbon Dioxide 24 mEq/L (19-29); Chloride 106 mEq/L (98-109); Glucose 142 mg/dL (70-99); Osmolality,Calculated 293 (280-300); Potassium 3.9 mEq/L (3.5-4.5); Sodium 140 mEq/L (136-145); eGFR For African Americans > 60 (> 60); eGFR For Non-African Americans > 60 (> 60)
[2017-02-17 20:54] LABS: Acetaminophen < 1.0 mcg/mL (10-30); Ethanol < 10 mg/dL (0-10); Salicylate < 5.0 mg/dL (15-30)
--- NOTE | 2017-02-17 21:43 | Emergency Department Note ---
START Narrative - START START: I examined this patient and my medical decision-making was reviewed with the Resident Physician. I agree with the documented findings, disposition and treatment plan as described except to the extent set forth below. 32-year-old male presents to the ER with suicidal ideation. Patient has a plan of attempting to hang himself. He has a previous attempt when he was 20 years old with overdose. He was placed in the ICU at that time. He lives with his parents. Has no access to a gun. He is still having thoughts of hurting himself. Denies any homicidal thoughts.
--- NOTE | 2017-02-17 22:32 | Emergency Department Note ---
Disposition Clinical Impression: Suicidal ideation, Auditory hallucinations Disposition: Admitted As Inpatient Condition: Fair Referrals: NONE,PCP [Primary Care Provider] - Forms: ED Satisfaction Letter General Adult HPI - General Chief complaint: ED Psychiatric Symptoms Stated complaint: si Time Seen by Provider: 02/17/17 20:21 Source: patient Limitations: no limitations - History of Present Illness Pain Scale: 0 - Related Data Home Medications Medication Instructions Recorded Confirmed No Known Home Drugs 02/14/17 02/14/17 Allergies Allergy/AdvReac Type Severity Reaction Status Date / Time No Known Allergies Allergy Verified 02/17/17 20:14 Constitutional: Denies: fever, chills Eyes: Denies: vision change ENT ED: Denies: congestion Cardiovascular: Denies: chest pain, palpitations, syncope Respiratory: Denies: cough, dyspnea, wheezes Gastrointestinal: Denies: abdominal pain, nausea, vomiting, diarrhea, hematemesis, melena, hematochezia Genitourinary: Denies: urgency, dysuria, frequency, hematuria Musculoskeletal: Denies: back pain, neck pain Integumentary: Denies: rash Neurological: Denies: headache, weakness, numbness Psychiatric: Reports: suicidal thoughts (With the plan of hanging himself), auditory hallucinations. Denies: homicidal thoughts, visual hallucinations Past Medical History - Past Medical History Medical history: Reports: no medical history Surgical history: Reports: no surgical history Psychiatric history: Reports: anxiety, depression, previous psychiatric hospitalization - Social History Smoking Status: Current every day smoker Smokeless Tobacco Status: No Alcohol use: Reports: none Drug use: Reports: cocaine, marijuana Physical Exam - General Limitations: no limitations General appearance: alert, in no apparent distress Course - Reevaluation(s) Reevaluation #1: Signed out pending evaluation. Admitted to psych. Time: 22:32 Vital Signs Temperature 98.4 F 02/17/17 20:14 Pulse Rate 98 02/17/17 20:14 Respiratory Rate 14 02/17/17 20:14 Blood Pressure 172/114 02/17/17 20:14 O2 Sat by Pulse Oximetry 96 02/17/17 20:14 Temperature 98.4 F 02/17/17 20:14 Pulse Rate 88 02/17/17 20:33 Respiratory Rate 16 02/17/17 20:33 Blood Pressure 172/114 02/17/17 20:14 O2 Sat by Pulse Oximetry 96 02/17/17 20:14 Oxygen Delivery Oxygen Delivery Room Air Medical Decision Making - Lab Data Result diagrams: 02/17/17 20:29 02/17/17 20:29 Lab Results 02/17/17 02/17/17 02/17/17 Range/Units 20:29 20:29 20:30 WBC 11.7 H (4.3-11.1) K/mcL RBC 6.49 H (4.19-5.50) M/mcL Hgb 19.0 H D (12.9-16.9) g/dL Hct 56.0 H (37.5-50.1) % MCV 86.3 (83.0-100.0) fL MCH 29.3 (28.0-33.3) pg MCHC 33.9 (31.6-35.5) g/dL RDW 13.5 (11.5-14.5) % Plt Count 222 (140-400) K/mcL MPV 9.8 (9.4-12.4) fL Immature Gran % 0.4 (0-4) % Seg Neutrophils % 75.9 % Lymphocytes % 16.0 % Monocytes % 7.1 % Eosinophils % 0.3 % Basophils % 0.3 % Neutrophils # 8.9 (1.6-8.9) K/mcL Lymphocytes # 1.9 (0.6-4.6) K/mcL Monocytes # 0.8 (0.0-1.3) K/mcL Eosinophils # 0.0 (0.0-0.6) K/mcL Basophils # 0.0 (0.0-0.2) K/mcL Sodium 140 (136-145) mEq/L Potassium 3.9 (3.5-4.5) mEq/L Chloride 106 (98-109) mEq/L Carbon Dioxide 24 (19-29) mEq/L BUN 13 (8-26) mg/dL Creatinine 1.26 H (0.72-1.25) mg/dL Est GFR ( Amer) > 60 (> 60) Est GFR (Non-Af Amer) > 60 (> 60) BUN/Creatinine Ratio 10 (6-26) Glucose 142 H (70-99) mg/dL Calculated Osmolality 293 (280-300) Calcium 9.7 (8.6-10.8) mg/dL Urine Color Dark Yellow (Yellow) Urine Clarity Clear (Clear) Urine pH 7.0 (5.0-8.0) pH Units Ur Specific [place] 1.029 H (1.010-1.025) Urine Protein 30 H (Neg-Trace) mg/dL Urine Glucose (UA) Normal (Normal) mg/dL Urine Ketones Trace H (Negative) mg/dL Urine Blood Negative (Negative) Urine Nitrite Negative (Negative) Urine Bilirubin Small H (Negative) Urine Urobilinogen Normal (Normal) mg/dL Ur Leukocyte Esterase Negative (Negative) Urine Microscopic RBC 0-3 (0-3) per hpf Urine Microscopic WBC 0-3 (0-3) per hpf Ur Squamous Epith Cells Moderate H (None-Few) per lpf Urine Bacteria None Seen (None-Few) per hpf Hyaline Casts None Seen (None-Few) per lpf Salicylates < 5.0 L (15-30) mg/dL Urine Opiates Screen (Wgexli=520) ng/mL Acetaminophen < 1.0 L (10-30) mcg/mL Ur Barbiturates Screen (Jwlwsx=615) ng/mL Ur Phencyclidine Scrn (Cutoff=25) ng/mL Ur Amphetamines Screen (Fusfvq=0600) ng/mL U Benzodiazepines Scrn (Hdrfim=335) ng/mL Urine Cocaine Screen (Cutoff= 300) ng/mL U Marijuana (THC) Screen (Cutoff = 50) ng/mL Ethyl Alcohol < 10 (0-10) mg/dL 02/17/17 Range/Units 20:30 WBC (4.3-11.1) K/mcL RBC (4.19-5.50) M/mcL Hgb (12.9-16.9) g/dL Hct (37.5-50.1) % MCV (83.0-100.0) fL MCH (28.0-33.3) pg MCHC (31.6-35.5) g/dL RDW (11.5-14.5) % Plt Count (140-400) K/mcL MPV (9.4-12.4) fL Immature Gran % (0-4) % Seg Neutrophils % % Lymphocytes % % Monocytes % % Eosinophils % % Basophils % % Neutrophils # (1.6-8.9) K/mcL Lymphocytes # (0.6-4.6) K/mcL Monocytes # (0.0-1.3) K/mcL Eosinophils # (0.0-0.6) K/mcL Basophils # (0.0-0.2) K/mcL Sodium (136-145) mEq/L Potassium (3.5-4.5) mEq/L Chloride (98-109) mEq/L Carbon Dioxide (19-29) mEq/L BUN (8-26) mg/dL Creatinine (0.72-1.25) mg/dL Est GFR ( Amer) (> 60) Est GFR (Non-Af Amer) (> 60) BUN/Creatinine Ratio (6-26) Glucose (70-99) mg/dL Calculated Osmolality (280-300) Calcium (8.6-10.8) mg/dL Urine Color (Yellow) Urine Clarity (Clear) Urine pH (5.0-8.0) pH Units Ur Specific [place] (1.010-1.025) Urine Protein (Neg-Trace) mg/dL Urine Glucose (UA) (Normal) mg/dL Urine Ketones (Negative) mg/dL Urine Blood (Negative) Urine Nitrite (Negative) Urine Bilirubin (Negative) Urine Urobilinogen (Normal) mg/dL Ur Leukocyte Esterase (Negative) Urine Microscopic RBC (0-3) per hpf Urine Microscopic WBC (0-3) per hpf Ur Squamous Epith Cells (None-Few) per lpf Urine Bacteria (None-Few) per hpf Hyaline Casts (None-Few) per lpf Salicylates (15-30) mg/dL Urine Opiates Screen Negative (Mzucak=000) ng/mL Acetaminophen (10-30) mcg/mL Ur Barbiturates Screen Negative (Hdjtam=790) ng/mL Ur Phencyclidine Scrn Negative (Cutoff=25) ng/mL Ur Amphetamines Screen Negative (Dmkaxe=2236) ng/mL U Benzodiazepines Scrn Negative (Edmwql=255) ng/mL Urine Cocaine Screen Positive H (Cutoff= 300) ng/mL U Marijuana (THC) Screen Positive H (Cutoff = 50) ng/mL Ethyl Alcohol (0-10) mg/dL
[2017-02-17] MEDS ORDERED: Haloperidol Lactate 5 MG/ML VIAL IM PRN (22:41)
[2017-02-17] MEDS ORDERED: *HR* LORazepam 2 MG/ML VIAL IM PRN (22:41)
[2017-02-17] MEDS ORDERED: Mag Hydrox/Al Hydrox/Simeth 30 ML UDC PO PRN (22:41)
[2017-02-17] MEDS ORDERED: MOM Conc 10 ML UD.LIQ PO PRN (22:41)
[2017-02-17] MEDS ORDERED: *HR* LORazepam 1 MG TABLET PO PRN (22:41)
[2017-02-17] MEDS ORDERED: Ibuprofen 400 MG TABLET PO PRN (22:41)
[2017-02-17] MEDS: Nicotine 2 MG GUM BC PRN (23:23)
[2017-02-17] MEDS: traZODone 50 MG TABLET PO PRN (23:24)
[2017-02-17] MEDS: hydrOXYzine pamoate 25 MG CAPSULE PO PRN (23:24)
[2017-02-18] MEDS: Nicotine 2 MG GUM BC PRN ×5 (09:31→21:40)
[2017-02-18] MEDS: hydrOXYzine pamoate 25 MG CAPSULE PO PRN ×2 (10:20→20:39)
--- NOTE | 2017-02-18 14:09 | Psychiatry History & Physical ---
Date of Encounter: 02/18/17 Time of Encounter: 13:30 History of Present Illness Patient Stated Chief Complaint: i want treatment this time. Medicare Admission Attestation: For traditional Medicare patients the provided hospital inpatient services are reasonable and necessary and in the case of services not specified as inpatient -only under 42 CFR 419.22 (n), that they are appropriately provided as inpatient services in accordance 42 CFR 412.3. For Critical Access Hospital the patient may reasonably be expected to be discharged or transferred to a hospital within 96 hours after admission to the Critical Access Hospital. Admitted From: Emergency Dept Plans for Post Hospital Care: Home History of Present Illness: Mr. Mo is a 32 year old male was evaluated today h/o depression , suicidal thoughts and attempt ,cocaine and marijuana use dosorder. He was admitted 2 times this year for 24 hrs as he would decline treatment and would come to ER as family puts pressure on him. States this time i am here because i want to be and the drugs are just masking my problems and i am not going anywhere. He states i lied before because i just wanted to get out. States has overdosed this year , I need help if i keep going like this i will end up killing my self. He has been hearing voices states i have never told any one because i am scared they will call me crazy, i have been hearing them all my life, i am here this time to be treated, my nerves are screwed up and panic attacks are significant. He is depress, anxious, and auditory hallucination. hears one voice tells me to do things which i should not do and keeps nagging till i do that , its too much now, like wants me to fight, hurt himself like overdose. states he has not used cocaine as much i have done off and on , one to two times a month as it is very expensive, marijuana is like daily use 2/day usually. denies alcohol , very rarely. at present patient is suicidal and plan to crash his truck. he is restless , anxious and need inpatient stabilization. will start anti psychotic, get cbc again and hga1c and TSH Past Med Surg Social Fam HX - Past Medical History Medical history: hypertension - Past Psychiatric History Psychiatric history: Reports: anxiety, depression, panic disorder, prior suicide attempt, previous psychiatric hospitalization Family psychiatric history: Yes Family History of Suicide: None - Past Surgical History Surgical History: no surgical history - Social History Smoking Status: Current every day smoker Smokeless Tobacco Status: No Alcohol use: none Drug use: cocaine, marijuana Medications & Allergies No Known Home Drugs 02/14/17 [History] 3 Allergy/AdvReac Type Severity Reaction Status Date / Time No Known Allergies Allergy Verified 02/17/17 20:14 Review of Systems Psychiatric: Reports: depression, anxiety, suicidal ideation, auditory hallucinations, difficulty concentrating, hopelessness, irritability, panic attacks Mental Status Exam Patient orientation: Yes Person, Yes Time, Yes Place Level of alertness: Alert Patient appearance: Appropriate Behavior: anxious Psychomotor activity: Increased Eye contact: Maintains Eye Contact Mood description: Depressed, Anxious Affect description: congruent with mood Speech pattern: Coherent Speech volume: Normal Thought content: Yes Suicidal ideation, Yes Guilt Perceptual disturbances: Yes Auditory hallucinations Attention span: Capable of Focused Attention Memory description: Grossly Intact Patient reliability: Questionable Historian Intelligence estimate: Average Judgment: Limited Insight: Minimal Exam - HEENT Head exam IM: Present: atraumatic, normal inspection, normocephalic Eye exam IM: Present: normal appearance ENT exam IM: Present: normal exam - Neurological Neurological exam IM: Present: alert, CN II-XII intact, normal gait, oriented X3 - Skin Skin exam IM: Present: dry, warm Results - Vital Signs Vital signs: Temp Pulse Resp BP Pulse Ox 98.7 F 64 18 134/81 96 02/18/17 09:00 02/18/17 09:00 02/18/17 09:00 02/18/17 09:00 02/17/17 20:14 - Labs Labs: Laboratory Last Values WBC 11.7 K/mcL (4.3-11.1) H 02/17/17 20:29 RBC 6.49 M/mcL (4.19-5.50) H 02/17/17 20:29 Hgb 19.0 g/dL (12.9-16.9) H D 02/17/17 20:29 Hct 56.0 % (37.5-50.1) H 02/17/17 20:29 MCV 86.3 fL (83.0-100.0) 02/17/17 20:29 MCH 29.3 pg (28.0-33.3) 02/17/17 20:29 MCHC 33.9 g/dL (31.6-35.5) 02/17/17 20: RDW 13.5 % (11.5-14.5) 02/17/17: Plt Count 222 K/mcL (140-400) 02/17/17 20: MPV 9.8 fL (9.4-12.4) 02/17/17 20: Immature Gran % 0.4 % (0-4) 02/17/17: Seg Neutrophils % 75.9 % 02/17/17: Lymphocytes % 16.0 % 02/17/17 20: Monocytes % 7.1 % 02/17/17: Eosinophils % 0.3 % 02/17/17: Basophils % 0.3 % 02/17/17: Neutrophils # 8.9 K/mcL (1.6-8.9) 02/17/17: Lymphocytes # 1.9 K/mcL (0.6-4.6) 02/17/17: Monocytes # 0.8 K/mcL (0.0-1.3) 02/17/17 20: Eosinophils # 0.0 K/mcL (0.0-0.6) 02/17/17: Basophils # 0.0 K/mcL (0.0-0.2) 02/17/17: Sodium 140 mEq/L (136-145) 02/17/17 20: Potassium 3.9 mEq/L (3.5-4.5) 02/17/17: Chloride 106 mEq/L (98-109) 02/17/17: Carbon Dioxide 24 mEq/L (19-29) 02/17/17 20: BUN 13 mg/dL (8-26) 02/17/17: Creatinine 1.26 mg/dL (0.72-1.25) H 02/17/17 20:29 Est GFR ( Amer) > 60 (> 60) 02/17/17 20: Est GFR (Non-Af Amer) > 60 (> 60) 02/17/17 20:29 BUN/Creatinine Ratio 10 (6-26) 02/17/17: Glucose 142 mg/dL (70-99) H 02/17/17:29 Calculated Osmolality 293 (280-300) 02/17/17 20: Calcium 9.7 mg/dL (8.6-10.8) 02/17/17 20:29 Urine Color Dark Yellow (Yellow) 02/17/17 20: Urine Clarity Clear (Clear) 02/17/17 20:30 Urine pH 7.0 pH Units (5.0-8.0) 02/17/17 20: Ur Specific [place] 1.029 (1.010-1.025) H 02/17/17 20: Urine Protein 30 mg/dL (Neg-Trace) H 02/17/17 20:30 Urine Glucose (UA) Normal mg/dL (Normal) 02/17/17 20: Urine Ketones Trace mg/dL (Negative) H 02/17/17 20: Urine Blood Negative (Negative) 02/17/17 20: Urine Nitrite Negative (Negative) 02/17/17 20:30 Urine Bilirubin Small (Negative) H 02/17/17 20: Urine Urobilinogen Normal mg/dL (Normal) 02/17/17 20:30 Ur Leukocyte Esterase Negative (Negative) 02/17/17 20:30 Urine Microscopic RBC 0-3 per hpf (0-3) 02/17/17 20:30 Urine Microscopic WBC 0-3 per hpf (0-3) 02/17/17 20:30 Ur Squamous Epith Cells Moderate per lpf (None-Few) H 02/17/17 20:30 Urine Bacteria None Seen per hpf (None-Few) 02/17/17 20:30 Hyaline Casts None Seen per lpf (None-Few) 02/17/17 20:30 Salicylates < 5.0 mg/dL (15-30) L 02/17/17 20:29 Urine Opiates Screen Negative ng/mL (Wpmlwf=164) 02/17/17 20:30 Acetaminophen < 1.0 mcg/mL (10-30) L 02/17/17 20:29 Ur Barbiturates Screen Negative ng/mL (Udilfo=556) 02/17/17 20:30 Ur Phencyclidine Scrn Negative ng/mL (Cutoff=25) 02/17/17 20:30 Ur Amphetamines Screen Negative ng/mL (Rsvssr=3058) 02/17/17 20: U Benzodiazepines Scrn Negative ng/mL (Tehosf=545) 02/17/17 20:30 Urine Cocaine Screen Positive ng/mL (Cutoff= 300) H 02/17/17 20:30 U Marijuana (THC) Screen Positive ng/mL (Cutoff = 50) H 02/17/17 20:30 Ethyl Alcohol < 10 mg/dL (0-10) 02/17/17 20:29 Assessment and Plan (1) Suicidal ideation Current visit: Yes Status: Acute Plan: Admit inpatient for safety and stabilization, Close observation, Suicide Precautions per unit protocol, Encourage participation in unit milieu, Group Therapy, Monitor sleep, Monitor appetite, Secure weapons, Family/Supportive other meeting Risks, benefits, side effects, alternatives discussed w/pt: Yes Patient agreeable to treatment: Yes Plans for Post Hospital Care: Home Estimated Length of Stay (Days): 5 (2) Major depress dis, severe Current visit: Yes Status: Acute Plan: Admit inpatient for safety and stabilization, Close observation, Suicide Precautions per unit protocol, Encourage participation in unit milieu, Group Therapy, Monitor sleep, Monitor appetite, Family/Supportive other meeting Risks, benefits, side effects, alternatives discussed w/pt: Yes Patient agreeable to treatment: Yes Plans for Post Hospital Care: Home Estimated Length of Stay (Days): 5 (3) Cocaine abuse Current visit: No Status: Chronic Plan: Admit inpatient for safety and stabilization, Suicide Precautions per unit protocol, Group Therapy, Monitor sleep, Family/Supportive other meeting Risks, benefits, side effects, alternatives discussed w/pt: Yes Patient agreeable to treatment: Yes Plans for Post Hospital Care: Home (4) Cannabis abuse Current visit: Yes Status: Acute
[2017-02-18 15:15] LABS: Hematocrit 51.5 % (37.5-50.1); Mean Corpuscular HGB Conc 33.6 g/dL (31.6-35.5); Mean Corpuscular Volume 86.4 fL (83.0-100.0); Mean Platelet Volume 10.1 fL (9.4-12.4); Platelet Count 200 K/mcL (140-400); Red Blood Count 5.96 M/mcL (4.19-5.50); Red Cell Distribution Width 13.3 % (11.5-14.5)
[2017-02-18 15:17] LABS: Hemoglobin 17.3 g/dL (12.9-16.9)
[2017-02-18 15:38] LABS: Hemoglobin A1C 4.6 %
[2017-02-18] MEDS: traZODone 50 MG TABLET PO PRN (23:27)
[2017-02-19] MEDS: Venlafaxine XR (24 HR) 37.5 MG CAP.ER.24H PO SCH (08:48)
--- NOTE | 2017-02-19 10:02 | Psychiatry Progress Note ---
Date of Encounter: 02/19/17 Time of Encounter: 10:02 Review of Systems Psychiatric: Reports: depression, anxiety, suicidal ideation, auditory hallucinations, difficulty concentrating, hopelessness, irritability, panic attacks Results - Vital Signs Vital Signs: Temp Pulse Resp BP Pulse Ox 97.8 F 58 18 143/86 96 02/19/17 09:00 02/19/17 09:00 02/19/17 09:00 02/19/17 09:00 02/17/17 20:14 - Labs Labs: Laboratory Results - last 24 hr 02/18/17 02/18/17 02/18/17 14:54 14:54 14:54 WBC 10.4 RBC 5.96 H Hgb 17.3 H D Hct 51.5 H MCV 86.4 MCH 29.0 MCHC 33.6 RDW 13.3 Plt Count 200 MPV 10.1 Est Mean Plasma Glucose 85 Hemoglobin A1c 4.6 TSH 1.645 Consult Discharge Plan - Plan Referrals: NONE,PCP [Primary Care Provider] -
--- NOTE | 2017-02-19 10:07 | Psychiatry Progress Note ---
Date of Encounter: 02/19/17 Time of Encounter: 10:03 Subjective Interval history: Client admitted for SI. Started on Seroquel and Effexor. Reports SI still there but starting to feel better. Plan was to OD. Has a history of a very serious overdose attempt. When he was 20y/o he took his parents blood pressure medication. Going through a divorce. Living with parents. Claims he can return to their home. Uses THC and Cocaine. Denies physical health problems or allergies. Family history of depression. Has taken meds in the past but reports it has been years. Has not been linked with services in a long time. Previous admission to [facility] but refused all services including meds, contact with family, Medicaid, referrals, etc. Now seems more amenable. Review of Systems Constitutional: Denies: fever, chills, weakness, weight change Eyes: Denies: eye pain, vision change Ears, Nose, Throat: Denies: ear pain, throat pain, dental pain, hearing loss, congestion Cardiovascular: Denies: chest pain, palpitations, dyspnea on exertion Respiratory: Denies: cough, dyspnea, wheezes Gastrointestinal: Denies: abdominal pain, nausea, vomiting, diarrhea, constipation Musculoskeletal: Denies: joint swelling, joint pain Neurological: Denies: headache, weakness, numbness, memory loss Psychiatric: Reports: depression, anxiety, suicidal ideation, auditory hallucinations, difficulty concentrating, hopelessness, irritability, panic attacks Objective: Exam Patient orientation: Yes Person, Yes Time, Yes Place Level of alertness: Alert Patient appearance: Appropriate, Well Groomed Behavior: calm, cooperative Psychomotor activity: Normal Eye contact: Maintains Eye Contact Mood description: Depressed Affect description: congruent with mood Speech pattern: Normal rate, Normal rhythm Speech volume: Normal Thought process: Linear Thought content: Yes Suicidal ideation, No Homicidal ideation Perceptual disturbances: No Auditory hallucinations, No Visual hallucinations Judgment: Limited Insight: Minimal Results - Vital Signs Vital Signs: Temp Pulse Resp BP Pulse Ox 97.8 F 58 18 143/86 96 02/19/17 09:00 02/19/17 09:00 02/19/17 09:00 02/19/17 09:00 02/17/17 20:14 - Labs Labs: Laboratory Results - last 24 hr 02/18/17 02/18/17 02/18/17 14:54 14:54 14:54 WBC 10.4 RBC 5.96 H Hgb 17.3 H D Hct 51.5 H MCV 86.4 MCH 29.0 MCHC 33.6 RDW 13.3 Plt Count 200 MPV 10.1 Est Mean Plasma Glucose 85 Hemoglobin A1c 4.6 TSH 1.645 Assessment and Plan (1) Major depress dis, severe Current visit: Yes Status: Acute Plan: Continue hospitalization, Close observation, Suicide Precautions per unit protocol, Encourage participation in unit milieu, Group Therapy, Monitor sleep, Monitor appetite Risks, benefits, side effects, alternatives discussed w/pt: Yes Patient agreeable to treatment: Yes Consult Discharge Plan - Plan Referrals: NONE,PCP [Primary Care Provider] -
[2017-02-19] MEDS: Nicotine 2 MG GUM BC PRN ×5 (10:37→21:16)
[2017-02-19] MEDS: hydrOXYzine pamoate 25 MG CAPSULE PO PRN (12:33)
[2017-02-19] MEDS: traZODone 50 MG TABLET PO PRN (22:30)
[2017-02-20 09:10] VITALS: BP 145/94
[2017-02-20] MEDS: Venlafaxine XR (24 HR) 37.5 MG CAP.ER.24H PO SCH (09:30)
[2017-02-20] MEDS: Nicotine 2 MG GUM BC PRN ×2 (10:58→13:16)
[2017-02-20] MEDS: hydrOXYzine pamoate 25 MG CAPSULE PO PRN (10:58)
--- NOTE | 2017-02-20 14:12 | Discharge Summary ---
Date of Encounter: 02/20/17 Time of Encounter: 14:10 Diagnosis - Discharge Diagnosis (1) Major depress dis, severe Status: Acute Medications - Discharge Medications Prescriptions: Quetiapine Fumarate [Seroquel] 100 mg PO HS #30 tablet traZODone [TraZODone] 50 mg PO HS PRN #30 tablet PRN Reason: Insomnia Venlafaxine XR (24 HR) [Effexor XR] 75 mg PO DAILY #30 cap.er.24h Propranolol [Inderal] 10 mg PO TID PRN tablet 02/20/17 [Rx] Quetiapine Fumarate [Seroquel] 100 mg PO HS #30 tablet 02/20/17 [Rx] Venlafaxine XR (24 HR) [Effexor XR] 75 mg PO DAILY #30 cap.er.24h 02/20/17 [Rx] traZODone [TraZODone] 50 mg PO HS PRN #30 tablet 02/20/17 [Rx] 3 Allergy/AdvReac Type Severity Reaction Status Date / Time No Known Allergies Allergy Verified 02/17/17 20:14 Results Procedures and tests throughout hospitalization: Completed Lab Orders Category Date Time Status CBC no Diff [Complete Blood Count w/o Diff] [HEME] Lab 02/18/17 14:54 Completed Routine Hgb A1C Routine Lab 02/18/17 14:54 Completed TSH [Thyroid Stimulating Hormone] Routine Lab 02/18/17 14:54 Completed Provider Date of admission: 02/17/17 22:38 Primary care physician: PCP NONE Consults: 02/17/17 23:04 Consult to Pastoral Services [CONS] Routine Comment: per patient request Discharging clinician: Joana Anglin Assessment and Plan - Patient/Caregiver Discharge Instructions Activity: resume usual activities as tolerated Diet: regular diet - Follow up Plan Follow up with: [facility] [Outside] - 02/26/17 4:00 pm (The above appointment is with Dr. Zavala for primary healthcare and medication management services.) [facility] (The above appointment is with . When you come to your first appointment, you will be completing paperwork, meeting with a counselor, and developing a treatment plan. You will receive follow- up appointments for on-going services, which could include community support, mental health and substance abuse counseling, groups/partial hospitalization programming and medication assisted treatment. Please bring the following with you to your first visit to the clinic: 1) proof of household income (two consecutive pay stubs, social security award letter, bank statement, statement letter from [facility], child support statement, IRS 1040 or W2 form, or a statement from the person who financially supports you stating they help provide for your basic needs), 2) proof of residency (drivers license, a piece of mail showing your address, a statement from person you live with verifying you live at their address), 3) your social security card, 4) photo ID, 5) your insurance card (if you have commercial insurance you must call to obtain a prior authorization number before you arrive to your first appointment) and 6) if you do not have insurance but have applied for Medicaid, please bring verification you have applied. This is the first available appointment. You may contact the office regularly to check for cancellations that may allow you to be seen sooner. ) Functional capacity at discharge: independent ambulation Overall status at discharge: Stable Disposition: Home, Self-Care Hospital Course Hospital course: Mr. Mo is a 32 year old male who was admitted secondary to SI. He was started on Effexor and Seroquel and these meds were titrated for clinical effect. On the unit he has been joking, laughing, and socializing with peers. He has been refusing groups but does not present as if he takes treatment seriously. He has been eating and sleeping well. 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 Has plans to live with his parents and staff are verifying this. He is being set up with a provider who can continue to fill his prescriptions and the possibility of continued med titration was discussed but client was told it takes several weeks before the full effect of med changes can be felt. - Time Spent with Patient Total time spent providing and/or coordinating discharge services: Quality - Multiple Antipsychotics Patient discharged on 2 or more antipsychotic medications: No Procedures - Procedures Procedures: Medication Management, Crisis Stabilization, Supportive Therapy, Group Therapy Mental Status Exam - Mental Status Exam Patient orientation: Yes Person, Yes Time, Yes Place Level of alertness: Alert Patient appearance: Appropriate, Well Groomed Behavior: calm, cooperative Psychomotor activity: Normal Eye contact: Maintains Eye Contact Mood description: Euthymic/stable Affect description: congruent with mood, full range Speech pattern: Normal rate, Normal rhythm, Normal tone Speech Volume: Normal Thought process: Linear, Goal Oriented Thought Content: No Suicidal ideation, No Homicidal ideation, No Overt delusions Perceptual Disturbances: No Auditory hallucinations, No Visual hallucinations Judgment: Limited Insight: Partial
[2017-02-21] MEDS ORDERED: Venlafaxine XR (24 HR) 75 MG CAP.ER.24H PO SCH (09:00)
== END 2017-02-20 15:15 | disposition home or self-care (01) | DRG 751 ==
LOC: EMEROO 20:07 → 1ANU 22:38
PROVIDERS: ADMIT Psychiatry & Neurology Psychiatry; ATTEND Psychiatry & Neurology Psychiatry

== ENCOUNTER 2017-02-21 12:58 | Observation (INO) ==
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
[2017-02-21 14:05] LABS: Basophils % 0.3 %; Eosinophils # 0.2 K/mcL (0.0-0.6); Eosinophils % 2.6 %; Hematocrit 49.3 % (37.5-50.1); Hemoglobin 17.3 g/dL (12.9-16.9); Immature Granulocytes % 0.4 % (0-4); Lymphocytes % 29.5 %; Mean Corpuscular HGB Conc 35.1 g/dL (31.6-35.5); Mean Corpuscular Hemoglobin 30.3 pg (28.0-33.3); Mean Corpuscular Volume 86.3 fL (83.0-100.0); Mean Platelet Volume 10.1 fL (9.4-12.4); Monocytes # 0.7 K/mcL (0.0-1.3); Monocytes % 9.9 %; Neutrophils # 3.9 K/mcL (1.6-8.9); Platelet Count 192 K/mcL (140-400); Red Blood Count 5.71 M/mcL (4.19-5.50); Red Cell Distribution Width 13.2 % (11.5-14.5); Segmented Neutrophils % 57.3 %
[2017-02-21 14:13] LABS: BUN/Creatinine Ratio 11 (6-26); Blood Urea Nitrogen 10 mg/dL (8-26); Calcium 9.1 mg/dL (8.6-10.8); Carbon Dioxide 23 mEq/L (19-29); Chloride 107 mEq/L (98-109); Glucose 98 mg/dL (70-99); Osmolality,Calculated 283 (280-300); Potassium 4.5 mEq/L (3.5-4.5); Sodium 137 mEq/L (136-145); eGFR For African Americans > 60 (> 60); eGFR For Non-African Americans > 60 (> 60)
[2017-02-21 14:35] LABS: Bilirubin,Urine Negative (Negative); Blood,Urine Negative (Negative); Clarity,Urine Clear (Clear); Color,Urine Yellow (Yellow); Glucose,Urine (UA) Normal (Normal); Ketones,Urine Negative (Negative); Leukocyte Esterase,Urine Negative (Negative); Nitrite,Urine Negative (Negative); Protein,Urine Negative (Neg-Trace); Specific Gravity,Urine 1.011 (1.010-1.025); Urobilinogen,Urine Normal (Normal)
[2017-02-21 14:40] LABS: Amphetamine Screen,Urine Negative ng/mL (Cutoff=1000); Barbiturate Screen,Urine Negative ng/mL (Cutoff=200); Benzodiazepines Screen,Urine Negative ng/mL (Cutoff=200); Cannabinoid Screen,Urine Negative ng/mL (Cutoff = 50); Cocaine Screen,Urine Positive ng/mL (Cutoff= 300); Opiate Screen,Urine Negative ng/mL (Cutoff=300); Phencyclidine Screen,Urine Negative ng/mL (Cutoff=25)
[2017-02-21 17:24] LABS: Ethanol < 10 mg/dL (0-10); Salicylate < 5.0 mg/dL (15-30)
[2017-02-21 18:34] LABS: Acetaminophen < 1.0 mcg/mL (10-30)
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
[2017-02-21] MEDS ORDERED: Ibuprofen 400 MG TABLET PO PRN (20:52)
[2017-02-21] MEDS ORDERED: Haloperidol Lactate 5 MG/ML VIAL IM PRN (20:52)
[2017-02-21] MEDS ORDERED: *HR* LORazepam 2 MG/ML VIAL IM PRN (20:52)
[2017-02-21] MEDS ORDERED: Mag Hydrox/Al Hydrox/Simeth 30 ML UDC PO PRN (20:52)
[2017-02-21] MEDS ORDERED: MOM Conc 10 ML UD.LIQ PO PRN (20:52)
[2017-02-21] MEDS ORDERED: hydrOXYzine pamoate 25 MG CAPSULE PO PRN (20:52)
[2017-02-21] MEDS ORDERED: *HR* LORazepam 1 MG TABLET PO PRN (20:52)
[2017-02-21] MEDS ORDERED: traZODone 50 MG TABLET PO PRN (20:55)
[2017-02-21] MEDS: Nicotine 2 MG GUM BC PRN (21:31)
[2017-02-21] MEDS: traZODone 50 MG TABLET PO PRN (21:31)
[2017-02-22] MEDS: Venlafaxine XR (24 HR) 75 MG CAP.ER.24H PO SCH (08:44)
[2017-02-22] MEDS: Nicotine 2 MG GUM BC PRN ×4 (08:45→20:01)
--- NOTE | 2017-02-22 11:53 | Psychiatry History & Physical ---
Date of Encounter: 02/22/17 Time of Encounter: 11:47 History of Present Illness Patient Stated Chief Complaint: suicidal ideation Medicare Admission Attestation: For traditional Medicare patients the provided hospital inpatient services are reasonable and necessary and in the case of services not specified as inpatient -only under 42 CFR 419.22 (n), that they are appropriately provided as inpatient services in accordance 42 CFR 412.3. For Critical Access Hospital the patient may reasonably be expected to be discharged or transferred to a hospital within 96 hours after admission to the Critical Access Hospital. Admitted From: Home Plans for Post Hospital Care: Home History of Present Illness: Mr. Mo is a 32 year old male who was readmitted for SI. Discharged from two days ago. Claims he "panicked" and did not know what to do so he came back to the hospital. Does not appear anxious. Had to be woken to see this tag writer and it is almost noon. Mother called to see if her son was here in the hospital. Claims he missed his appointment with his PO. Claims he missed his PO appointment when he was admitted the last time as well. Tested positive for cocaine the last time and again this time. May be avoiding his PO due to knowing he has positive tox screens. Ra claims his living environment is not conducive to his recovery because both of his parents use drugs. Open to rehab. Managed to get a haircut while he was out. bridge maintenance worker called and spoke with him yesterday morning to give him his appointment times and Ra indicated he was fine at that time. Home meds have been restarted. Past Med Surg Social Fam HX - Past Medical History Medical history: hypertension - Past Psychiatric History Psychiatric history: Reports: anxiety, depression, previous psychiatric hospitalization Family psychiatric history: Unknown Family History of Suicide: Unknown - Past Surgical History Surgical History: no surgical history - Social History Smoking Status: Current every day smoker Smokeless Tobacco Status: No Alcohol use: none Drug use: cocaine, marijuana - Family History Mother Hx Family Endocrine Disorder: Yes (DM) Medications & Allergies Propranolol [Inderal] 10 mg PO TID PRN tablet 02/20/17 [Rx] Quetiapine Fumarate [Seroquel] 100 mg PO HS #30 tablet 02/20/17 [Rx] Venlafaxine XR (24 HR) [Effexor XR] 75 mg PO DAILY #30 cap.er.24h 02/20/17 [Rx] traZODone [TraZODone] 50 mg PO HS PRN #30 tablet 02/20/17 [Rx] 3 Allergy/AdvReac Type Severity Reaction Status Date / Time No Known Allergies Allergy Verified 02/21/17 13:01 Review of Systems Constitutional: Denies: fever, chills, weakness, weight change Eyes: Denies: eye pain, vision change Ears, Nose, Throat: Denies: ear pain, throat pain, dental pain, hearing loss, congestion Cardiovascular: Denies: chest pain, palpitations, dyspnea on exertion Respiratory: Denies: cough, dyspnea, wheezes Gastrointestinal: Denies: abdominal pain, nausea, vomiting, diarrhea, constipation Genitourinary male: Denies: urgency, dysuria, frequency, genital lesions Genitourinary female: Denies: urgency, dysuria, frequency, abnormal menses, dyspareunia Musculoskeletal: Denies: joint swelling, joint pain Integumentary: Denies: rash, lesions, pruritus Neurological: Denies: headache, weakness, numbness, memory loss Endocrine: Denies: fatigue, heat or cold intolerance Hematologic/Lymphatic: Denies: easy bruising, lymphadenopathy Allergic/Immunologic: Denies: urticaria, itchy eyes Mental Status Exam Patient orientation: Yes Person, Yes Time, Yes Place Level of alertness: Alert Patient appearance: Appropriate, Well Groomed Behavior: calm, cooperative Psychomotor activity: Normal Eye contact: Maintains Eye Contact Mood description: Depressed Affect description: full range Speech pattern: Normal rate, Normal rhythm, Normal tone Speech volume: Normal Thought process: Linear, Goal Oriented Thought content: Yes Suicidal ideation, No Homicidal ideation, No Overt delusions Perceptual disturbances: No Auditory hallucinations, No Visual hallucinations Attention span: Capable of Focused Attention Memory description: Grossly Intact Patient reliability: Questionable Historian Intelligence estimate: Average Judgment: Limited Insight: Minimal Exam - HEENT Head exam IM: Present: atraumatic Eye exam IM: Present: EOMI ENT exam IM: Present: mucous membranes moist - Neurological Neurological exam IM: Present: alert, oriented X3 - Respiratory Respiratory exam IM: Present: CTAB - GI/Abdominal GI/Abdominal exam IM: Present: normal bowel sounds - Extremities Extremities exam IM: Present: full ROM - Skin Skin exam IM: Present: normal color Results - Vital Signs Vital signs: Temp Pulse Resp BP Pulse Ox 97.2 F L 63 20 124/71 96 10/12/17 09:00 02/22/17 09:00 02/22/17 09:00 02/22/17 09:00 02/21/17 12:59 - Labs Labs: Laboratory Last Values WBC 6.9 K/mcL (4.3-11.1) 02/21/17 13:47 RBC 5.71 M/mcL (4.19-5.50) H 02/21/17 13:47 Hgb 17.3 g/dL (12.9-16.9) H 02/21/17 13:47 Hct 49.3 % (37.5-50.1) 02/21/17 13:47 MCV 86.3 fL (83.0-100.0) 02/21/17 13:47 MCH 30.3 pg (28.0-33.3) 02/21/17 13:47 MCHC 35.1 g/dL (31.6-35.5) 02/21/17 13:47 RDW 13.2 % (11.5-14.5) 02/21/17 13:47 Plt Count 192 K/mcL (140-400) 02/21/17 13:47 MPV 10.1 fL (9.4-12.4) 02/21/17 13:47 Immature Gran % 0.4 % (0-4) 02/21/17 13:47 Seg Neutrophils % 57.3 % 02/21/17 13:47 Lymphocytes % 29.5 % 02/21/17 13:47 Monocytes % 9.9 % 02/21/17 13:47 Eosinophils % 2.6 % 02/21/17 13:47 Basophils % 0.3 % 02/21/17 13:47 Neutrophils # 3.9 K/mcL (1.6-8.9) 02/21/17 13:47 Lymphocytes # 2.0 K/mcL (0.6-4.6) 02/21/17 13:47 Monocytes # 0.7 K/mcL (0.0-1.3) 02/21/17 13:47 Eosinophils # 0.2 K/mcL (0.0-0.6) 02/21/17 13:47 Basophils # 0.0 K/mcL (0.0-0.2) 02/21/17 13:47 Sodium 137 mEq/L (136-145) 02/21/17 13:47 Potassium 4.5 mEq/L (3.5-4.5) 02/21/17 13:47 Chloride 107 mEq/L (98-109) 02/21/17 13:47 Carbon Dioxide 23 mEq/L (19-29) 02/21/17 13:47 BUN 10 mg/dL (8-26) 02/21/17 13:47 Creatinine 0.95 mg/dL (0.72-1.25) 02/21/17 13:47 Est GFR ( Amer) > 60 (> 60) 02/21/17 13:47 Est GFR (Non-Af Amer) > 60 (> 60) 02/21/17 13:47 BUN/Creatinine Ratio 11 (6-26) 02/21/17 13:47 Glucose 98 mg/dL (70-99) 02/21/17 13:47 Calculated Osmolality 283 (280-300) 02/21/17 13:47 Calcium 9.1 mg/dL (8.6-10.8) 02/21/17 13:47 Urine Color Yellow (Yellow) 02/21/17 14:20 Urine Clarity Clear (Clear) 02/21/17 14:20 Urine pH 6.0 pH Units (5.0-8.0) 02/21/17 14:20 Ur Specific [place] 1.011 (1.010-1.025) 02/21/17 14:20 Urine Protein Negative mg/dL (Neg-Trace) 02/21/17 14:20 Urine Glucose (UA) Normal mg/dL (Normal) 02/21/17 14:20 Urine Ketones Negative mg/dL (Negative) 02/21/17 14:20 Urine Blood Negative (Negative) 02/21/17 14:20 Urine Nitrite Negative (Negative) 02/21/17 14:20 Urine Bilirubin Negative (Negative) 02/21/17 14:20 Urine Urobilinogen Normal mg/dL (Normal) 02/21/17 14:20 Ur Leukocyte Esterase Negative (Negative) 02/21/17 14:20 Ur Culture Indicated? NO (NO) 02/21/17 14:20 Salicylates < 5.0 mg/dL (15-30) L 02/21/17 13:47 Urine Opiates Screen Negative ng/mL (Melhhw=180) 02/21/17 14:20 Acetaminophen < 1.0 mcg/mL (10-30) L 02/21/17 13:47 Ur Barbiturates Screen Negative ng/mL (Jsnsyj=612) 02/21/17 14:20 Ur Phencyclidine Scrn Negative ng/mL (Cutoff=25) 02/21/17 14:20 Ur Amphetamines Screen Negative ng/mL (Pvaohw=7240) 02/21/17 14:20 U Benzodiazepines Scrn Negative ng/mL (Xnnncr=383) 02/21/17 14:20 Urine Cocaine Screen Positive ng/mL (Cutoff= 300) H 02/21/17 14:20 U Marijuana (THC) Screen Negative ng/mL (Cutoff = 50) 02/21/17 14:20 Ethyl Alcohol < 10 mg/dL (0-10) 02/21/17 13:47 Assessment and Plan (1) Depression Current visit: No Status: Acute Plan: Admit inpatient for safety and stabilization, Close observation, Suicide Precautions per unit protocol, Encourage participation in unit milieu, Group Therapy, Monitor sleep, Monitor appetite Risks, benefits, side effects, alternatives discussed w/pt: Yes Patient agreeable to treatment: Yes Plans for Post Hospital Care: Transfer Shelter Facility Estimated Length of Stay (Days): 4 Qualifiers: Depression Type: reactive depression Qualified Code(s): F32.9 - Major depressive disorder, single episode, unspecified
[2017-02-22] MEDS: traZODone 50 MG TABLET PO PRN (20:01)
[2017-02-23 09:19] VITALS: BP 141/85
[2017-02-23] MEDS: Venlafaxine XR (24 HR) 75 MG CAP.ER.24H PO SCH (09:22)
--- NOTE | 2017-02-23 09:41 | Discharge Summary ---
Date of Encounter: 02/23/17 Time of Encounter: 09:37 Diagnosis - Discharge Diagnosis (1) Depression Status: Acute Qualifiers: Depression Type: reactive depression Qualified Code(s): F32.9 - Major depressive disorder, single episode, unspecified Medications - Discharge Medications Prescriptions: hydrOXYzine pamoate [HydrOXYzine Pamoate] 25 mg PO TID PRN #42 capsule PRN Reason: Anxiety Propranolol [Inderal] 10 mg PO TID PRN #14 tablet PRN Reason: Anxiety Quetiapine Fumarate [Seroquel] 100 mg PO HS #30 tablet 02/20/17 [Rx] Venlafaxine XR (24 HR) [Effexor XR] 75 mg PO DAILY #30 cap.er.24h 02/20/17 [Rx] traZODone [TraZODone] 50 mg PO HS PRN #30 tablet 02/20/17 [Rx] Propranolol [Inderal] 10 mg PO TID PRN #14 tablet 02/23/17 [Rx] hydrOXYzine pamoate [HydrOXYzine Pamoate] 25 mg PO TID PRN #42 capsule 02/23/17 [Rx] 3 Allergy/AdvReac Type Severity Reaction Status Date / Time No Known Allergies Allergy Verified 02/21/17 13:01 Provider Date of admission: 02/21/17 20:09 Primary care physician: PCP NONE Discharging clinician: Joana Anglin Assessment and Plan - Patient/Caregiver Discharge Instructions Activity: resume usual activities as tolerated Diet: regular diet - Follow up Plan Follow up with: [facility] [Outside] - 02/26/17 4:00 pm (The above appointment is with Dr. Zavala for primary health care and medication management services. Please arrive 10 minutes early to complete the check-in process. Please also bring your insurance card (or H[employer] award letter) , photo ID, and all medications in their original bottles to this appointment. If you are unable to keep this appointment, 24 hour business notice of cancellation is expected. This is the first available appointment. You may contact the office regularly to check for cancellations that may allow you to be seen sooner. ) [facility]Outside] - 03/06/17 2:00 pm (The above appointment is with Tamera Reyna. When you come to your first appointment, you will be completing paperwork, meeting with a counselor, and developing a treatment plan. You will receive follow- up appointments for on-going services , which could include community support, mental health and substance abuse counseling, groups/partial hospitalization programming and medication assisted treatment. Please bring the following with you to your first visit to the clinic: 1) proof of household income (two consecutive pay stubs, social security award letter, bank statement, statement letter from [facility], child support statement, IRS 1040 or W2 form, or a statement from the person who financially supports you stating they help provide for your basic needs), 2) proof of residency (drivers license, a piece of mail showing your address, a statement from person you live with verifying you live at their address), 3) your social security card, 4) photo ID, 5) your insurance card (if you have commercial insurance you must call to obtain a prior authorization number before you arrive to your first appointment) and 6) if you do not have insurance but have applied for Medicaid, please bring verification you have applied. This is the first available appointment. You may contact the office regularly to check for cancellations that may allow you to be seen sooner. ) Functional capacity at discharge: independent ambulation Overall status at discharge: Stable Disposition: Home, Self-Care Hospital Course Hospital course: Mr. Mo is a 32 year old male who was readmitted secondary to SI. Claims he "panicked" shortly after being discharged from the hospital. However, the social worker school had talked to him the day before his readmission and he reported everything was fine. His tox screen on readmittance was positive for cocaine and his mother called the unit reporting her son may be trying to avoid his PO by going to the hospital. Ra denied this was the case but he did say he was ready for discharge the next day. Many of his peers that he hung out with the first time had been discharged and staff suspect their absence made the hospitalization less worthwhile for him. He slept and ate well while he was here. His affect was full and reactive. He never appeared outwardly depressed or anxious. On the day of discharge he reported his mood was good and he denied all SI. Already linked with outpatient services and appointments made. - Time Spent with Patient Total time spent providing and/or coordinating discharge services: Quality - Multiple Antipsychotics Patient discharged on 2 or more antipsychotic medications: No Procedures - Procedures Procedures: Medication Management, Crisis Stabilization, Supportive Therapy, Group Therapy Mental Status Exam - Mental Status Exam Patient orientation: Yes Person, Yes Time, Yes Place Level of alertness: Alert Patient appearance: Appropriate, Well Groomed Behavior: calm, cooperative Psychomotor activity: Normal Eye contact: Maintains Eye Contact Mood description: Euthymic/stable Affect description: congruent with mood, full range Speech pattern: Normal rate, Normal rhythm, Normal tone Speech Volume: Normal Thought process: Linear, Goal Oriented Thought Content: No Suicidal ideation, No Homicidal ideation, No Overt delusions Perceptual Disturbances: No Auditory hallucinations, No Visual hallucinations Judgment: Limited Insight: Minimal
[2017-02-23] MEDS ORDERED: FLUARIX QUAD 2017-18 36MOS UP/PF 0.5 ML SYRINGE IM ONE (09:53)
[2017-02-23] MEDS: Nicotine 2 MG GUM BC PRN (10:11)
== END 2017-02-23 10:29 | disposition home or self-care (01) ==
LOC: 1ANU 12:58 → EMEROO 12:58 → 1ANU 21:00
PROVIDERS: ADMIT Psychiatry & Neurology Psychiatry; ATTEND Psychiatry & Neurology Psychiatry